=== PATIENT | male | born 1990 | race Caucasian/White ===

== ENCOUNTER 2017-05-18 12:50 | Inpatient (IN) | payer MEDICAID, OTHER ==
[~2017-05-18] VITALS: Ht 172.7 cm; Wt 83.6 kg
[2017-05-18] MEDS ORDERED: ARIP2 PO (12:57)
[2017-05-18] MEDS ORDERED: PALI39DI IM (12:57)
[2017-05-18] MEDS ORDERED: TRAZ-147 PO (12:57)
[2017-05-18] MEDS ORDERED: LORazepam 2 MG TABLET PO ONE (13:30)
[2017-05-18 13:36] LABS: BASOPHILS % (AUTO) 0.4 % (0.0-2.0); EOSINOPHILS % (AUTO) 1.9 % (1.0-6.0); HEMATOCRIT 42.8 % (41-53); HEMOGLOBIN 14.6 g/dL (13.5-17.5); LYMPHOCYTES # (AUTO) 1.4 K/uL (1.0-4.8); LYMPHOCYTES % (AUTO) 17.5 % (22.0-44.0); MEAN CORPUSCULAR HEMOGLOBIN 30.8 pg (26.0-34.0); MEAN CORPUSCULAR HGB CONC 34.2 G/dL (31.0-37.0); MEAN CORPUSCULAR VOLUME 90 fL (80-100); MONOCYTES # (AUTO) 0.7 K/uL (0.1-1.0); MONOCYTES % (AUTO) 8.9 % (2.0-9.0); NEUTROPHILS # (AUTO) 5.9 K/uL (1.8-7.7); NEUTROPHILS % (AUTO) 71.3 % (40.0-70.0); PLATELET COUNT (AUTO) 190 K/uL (150-450); RED BLOOD CELL COUNT(AUTO) 4.75 MIL/uL (4.50-5.90); RED CELL DISTRIBUTION WIDTH 13.7 % (11.5-14.5); WHITE BLOOD COUNT (AUTO) 8.3 K/uL (4.5-11.0)
[2017-05-18 14:04] LABS: ANION GAP 7 mmol/L (8-16); CARBON DIOXIDE 25 mmol/L (22-29); CHLORIDE 106 mmol/L (98-107); CREATININE 0.89 mg/dL (0.60-1.30); GLOMERULAR FILTR. RATE CALC > 60 mL/min (>60); POTASSIUM 4.4 mmol/L (3.5-5.1); SODIUM SERUM 138 mmol/L (136-145); UREA NITROGEN, BLOOD 13 mg/dL (7-18)
[2017-05-18 14:10] LABS: ALANINE AMINOTRANSFERASE 46 U/L (12-78); ALBUMIN 3.8 g/dL (3.4-5.0); ASPARTATE AMINOTRANSFERASE 59 U/L (15-37); BILIRUBIN,TOTAL 0.3 mg/dL (0.1-1.0); TOTAL PROTEIN, SERUM 6.9 g/dL (6.4-8.2)
[2017-05-18 14:49] VITALS: BP 116/66
[2017-05-18] MEDS: HALOPERIDOL 5 MG TABLET PO PRN (17:18)
[2017-05-18] MEDS: LORazepam 2 MG TABLET PO PRN (17:18)
[2017-05-18] MEDS ORDERED: INFLUENZA VIRUS VACCINE QVS 2017-18 (3YR+)/PF 60 MCG/0.5 ML SYRINGE IM ONE (20:15)
[2017-05-19 07:39] VITALS: BP 104/61
[2017-05-19] MEDS ORDERED: MAGNESIUM HYDROXIDE SUSPENSION 30 ML UDCUP PO PRN (10:00)
[2017-05-19] MEDS ORDERED: IBUPROFEN 600 MG TABLET PO PRN (10:00)
[2017-05-19] MEDS ORDERED: ALBUTEROL SULFATE HFA 90 MCG/PUFF 8 GM INHALER IH PRN (10:00)
[2017-05-19] MEDS ORDERED: ONDANSETRON HCL 4 MG TABLET PO PRN (10:00)
[2017-05-19] MEDS ORDERED: CloNIDine HCL 0.1 MG TABLET PO PRN (10:00)
[2017-05-19] MEDS ORDERED: LOPERAMIDE HCL 2 MG CAPSULE PO PRN (10:00)
[2017-05-19] MEDS ORDERED: MAG HYDROX/AL HYDROX/SIMETH ES 30 ML SUSPENSION UDCUP PO PRN (10:00)
[2017-05-19] MEDS ORDERED: ACETAMINOPHEN 325 MG TABLET PO PRN (10:00)
[2017-05-19] MEDS ORDERED: BACITRACIN 28.4 GM OINTMENT TP PRN (10:00)
[2017-05-19] MEDS ORDERED: PETROLATUM,WHITE 71 GM JELLY TP PRN (10:00)
[2017-05-19] MEDS ORDERED: BENZOCAINE/MENTHOL LOZENGE MM PRN (10:00)
[2017-05-19] MEDS: LORazepam 2 MG TABLET PO PRN ×2 (12:45→20:40)
[2017-05-19] MEDS: HALOPERIDOL 5 MG TABLET PO PRN (12:45)
[2017-05-19 16:00] VITALS: BP 112/70
[2017-05-19] MEDS: TraZODone HCL 100 MG TABLET PO SCH (20:40)
[2017-05-20 07:04] VITALS: BP 119/69
[2017-05-20 08:54] VITALS: BP 100/60
[2017-05-20] MEDS: ARIPiprazole 2 MG TABLET PO SCH (09:17)
[2017-05-20] MEDS: LORazepam 2 MG TABLET PO PRN ×3 (09:17→20:35)
[2017-05-20] MEDS: HALOPERIDOL 5 MG TABLET PO PRN (16:07)
[2017-05-20] MEDS: TraZODone HCL 100 MG TABLET PO SCH (20:35)
[2017-05-20] MEDS: ZOLPIDEM TARTRATE 10 MG TABLET PO PRN (20:35)
[2017-05-21 08:08] VITALS: BP 103/64
[2017-05-21] MEDS: ARIPiprazole 2 MG TABLET PO SCH (08:45)
[2017-05-21 16:16] VITALS: BP 109/72
[2017-05-21] MEDS: TraZODone HCL 100 MG TABLET PO SCH (20:25)
[2017-05-22 08:39] VITALS: BP 100/61
[2017-05-22 09:03] LABS: HEMOGLOBIN A1C 5.5 % (4.5-6.2)
[2017-05-22] MEDS: ARIPiprazole 2 MG TABLET PO SCH (09:10)
[2017-05-22 09:46] LABS: CHOL/HDL RATIO 4.4 (4.2-7.3); THYROID STIMULATING HORMONE 2.67 uIU/mL (0.36-3.74)
[2017-05-22 16:00] VITALS: BP 109/73
[2017-05-22] MEDS: HALOPERIDOL 5 MG TABLET PO PRN (16:37)
[2017-05-22] MEDS: LORazepam 2 MG TABLET PO PRN (16:37)
[2017-05-22] MEDS: TraZODone HCL 100 MG TABLET PO SCH (20:41)
[2017-05-23 08:36] VITALS: BP 108/65
[2017-05-23] MEDS: ARIPiprazole 2 MG TABLET PO SCH (09:23)
[2017-05-23 10:37] LABS: HEPATITIS Bs ANTIGEN SCREEN P Negative (Negative); HEPATITIS C AB SCREEN <0.1 s/co ratio (0.0-0.9)
[2017-05-23 16:00] VITALS: BP 114/66
[2017-05-23] MEDS: HALOPERIDOL 5 MG TABLET PO PRN (16:02)
[2017-05-23] MEDS: LORazepam 2 MG TABLET PO PRN (16:02)
[2017-05-23] MEDS: TraZODone HCL 100 MG TABLET PO SCH (20:33)
[2017-05-24 06:40] VITALS: BP 123/89
[2017-05-24 08:10] VITALS: BP 101/60
[2017-05-24] MEDS: ARIPiprazole 2 MG TABLET PO SCH (09:26)
[2017-05-24] MEDS: LORazepam 2 MG TABLET PO PRN ×3 (11:39→20:34)
[2017-05-24 16:00] VITALS: BP 116/66
[2017-05-24] MEDS: HALOPERIDOL 5 MG TABLET PO PRN (16:13)
[2017-05-24] MEDS: TraZODone HCL 100 MG TABLET PO SCH (20:34)
[2017-05-24] MEDS: ZOLPIDEM TARTRATE 10 MG TABLET PO PRN (20:34)
[2017-05-25 06:22] VITALS: BP 121/73
[2017-05-25 08:23] VITALS: BP 110/60
[2017-05-25] MEDS: ARIPiprazole 2 MG TABLET PO SCH (09:16)
[2017-05-25 16:00] VITALS: BP 118/70
[2017-05-25] MEDS: HALOPERIDOL 5 MG TABLET PO PRN (16:11)
[2017-05-25] MEDS: LORazepam 2 MG TABLET PO PRN ×2 (16:11→20:53)
[2017-05-25] MEDS: ZOLPIDEM TARTRATE 10 MG TABLET PO PRN (20:53)
[2017-05-25] MEDS: TraZODone HCL 100 MG TABLET PO SCH (20:53)
[2017-05-26 07:05] VITALS: BP 105/66
[2017-05-26 08:17] VITALS: BP 112/69
[2017-05-26] MEDS: ARIPiprazole 2 MG TABLET PO SCH (09:00)
== END 2017-05-26 15:35 | disposition home or self-care (01) | DRG 750 ==
LOC: EMS 12:50 → B3A 13:54
PROVIDERS: ADMIT Psychiatry & Neurology Psychiatry; ATTEND Psychiatry & Neurology Psychiatry
DX: F25.9 Schizoaffective disorder, unspecified (principal); F22 Delusional disorders; R45.851 Suicidal ideations; F31.9 Bipolar disorder, unspecified; F17.210 Nicotine dependence, cigarettes, uncomplicated; G40.909 Epilepsy, unspecified, not intractable, without status epilepticus; G47.00 Insomnia, unspecified; K59.00 Constipation, unspecified; Z71.6 Tobacco abuse counseling; Z72.89 Other problems related to lifestyle; Z71.41 Alcohol abuse counseling and surveillance of alcoholic; Z28.21 Immunization not carried out because of patient refusal; Z88.8 Allergy status to other drugs, medicaments and biological substances
CPT/HCPCS: 80074; 82306; 83036; 84443; 99285; G0480

== ENCOUNTER 2017-07-15 11:48 | Inpatient (IN) | payer MEDICAID, OTHER ==
[~2017-07-15] VITALS: Ht 177.8 cm; Wt 75.5 kg
[~2017-07-15 11:48] MED LIST: ARIP2 PO; TRAZ-147 PO
[2017-07-15] MEDS ORDERED: LITH300C3 PO (12:17)
[2017-07-15] MEDS ORDERED: PALI78DI IM (12:17)
[2017-07-15 12:53] LABS: BASOPHILS % (AUTO) 0.4 % (0.0-2.0); HEMATOCRIT 46.3 % (41-53); HEMOGLOBIN 15.8 g/dL (13.5-17.5); LYMPHOCYTES % (AUTO) 28.3 % (22.0-44.0); MEAN CORPUSCULAR HEMOGLOBIN 30.5 pg (26.0-34.0); MEAN CORPUSCULAR HGB CONC 34.1 G/dL (31.0-37.0); MEAN CORPUSCULAR VOLUME 90 fL (80-100); MONOCYTES # (AUTO) 0.7 K/uL (0.1-1.0); MONOCYTES % (AUTO) 9.4 % (2.0-9.0); NEUTROPHILS # (AUTO) 4.3 K/uL (1.8-7.7); NEUTROPHILS % (AUTO) 60.9 % (40.0-70.0); PLATELET COUNT (AUTO) 219 K/uL (150-450); RED BLOOD CELL COUNT(AUTO) 5.17 MIL/uL (4.50-5.90); RED CELL DISTRIBUTION WIDTH 13.4 % (11.5-14.5)
[2017-07-15 13:00] LABS: ANION GAP 7 mmol/L (8-16); CALCIUM, TOTAL 9.3 mg/dL (8.8-10.5); CARBON DIOXIDE 30 mmol/L (22-29); CHLORIDE 103 mmol/L (98-107); CREATININE 1.15 mg/dL (0.60-1.30); GLOMERULAR FILTR. RATE CALC > 60 mL/min (>60); GLUCOSE,RANDOM 89 mg/dL (70-110); POTASSIUM 3.9 mmol/L (3.5-5.1); SODIUM SERUM 140 mmol/L (136-145); UREA NITROGEN, BLOOD 14 mg/dL (7-18)
[2017-07-15 13:08] LABS: ALANINE AMINOTRANSFERASE 22 U/L (12-78); ALBUMIN 4.3 g/dL (3.4-5.0); ALKALINE PHOSPHATASE 77 U/L (46-116); ASPARTATE AMINOTRANSFERASE 19 U/L (15-37); BILIRUBIN,TOTAL 0.5 mg/dL (0.1-1.0); TOTAL PROTEIN, SERUM 7.5 g/dL (6.4-8.2)
[2017-07-15] MEDS ORDERED: ZOLPIDEM TARTRATE 10 MG TABLET PO PRN (14:45)
[2017-07-15 16:54] LABS: CHOL/HDL RATIO 2.9 (4.2-7.3); CHOLESTEROL 136 mg/dL (131-200); FREE T4 (FREE THYROXINE) 1.04 ng/dL (0.76-1.46); HDL CHOLESTEROL 47 mg/dL (40-60); LDL CHOL (CALC.) 79 mg/dL (0-130); THYROID STIMULATING HORMONE 1.21 uIU/mL (0.36-3.74); TRIGLYCERIDES 49 mg/dL (15-150)
[2017-07-15] MEDS: HALOPERIDOL 5 MG TABLET PO PRN (18:17)
[2017-07-15] MEDS: LORazepam 2 MG TABLET PO PRN (18:17)
[2017-07-15] MEDS ORDERED: INFLUENZA VIRUS VACCINE QVS 2017-18 (3YR+)/PF 60 MCG/0.5 ML SYRINGE IM ONE (18:45)
[2017-07-15 20:13] VITALS: BP 118/72
[2017-07-16 06:24] VITALS: BP 94/55
[2017-07-16 08:37] VITALS: BP 97/74
[2017-07-16] MEDS: HALOPERIDOL 5 MG TABLET PO PRN ×2 (08:39→16:13)
[2017-07-16] MEDS: NICOTINE 21 MG/24 HOUR PATCH TD SCH ×2 (08:40→09:05)
[2017-07-16] MEDS: LORazepam 2 MG TABLET PO PRN ×2 (08:40→16:13)
[2017-07-16] MEDS ORDERED: ARIPiprazole 10 MG TABLET PO SCH (09:00)
[2017-07-16] MEDS: LITHIUM CARBONATE 300 MG CAPSULE PO SCH ×2 (09:05→16:13)
[2017-07-16 16:08] VITALS: BP 116/70
[2017-07-16] MEDS ORDERED: TraZODone HCL 50 MG TABLET PO SCH (21:00)
[2017-07-17 08:00] VITALS: BP 110/65
[2017-07-17] MEDS: HALOPERIDOL 5 MG TABLET PO PRN ×2 (09:16→16:36)
[2017-07-17] MEDS: LITHIUM CARBONATE 300 MG CAPSULE PO SCH ×2 (09:16→16:36)
[2017-07-17] MEDS: LORazepam 2 MG TABLET PO PRN ×2 (09:16→16:36)
[2017-07-17 16:05] VITALS: BP 120/64
[2017-07-17] MEDS: RisperiDONE 1 MG TABLET PO SCH (20:15)
[2017-07-18 06:23] VITALS: BP 122/78
[2017-07-18 08:04] VITALS: BP 110/68
[2017-07-18] MEDS: NICOTINE 21 MG/24 HOUR PATCH TD SCH (09:01)
[2017-07-18] MEDS: LITHIUM CARBONATE 300 MG CAPSULE PO SCH (09:01)
[2017-07-18] MEDS: RisperiDONE 1 MG TABLET PO SCH (09:01)
[2017-07-18] MEDS ORDERED: RISP1 PO (10:27)
== END 2017-07-18 13:15 | disposition home or self-care (01) | DRG 750 ==
LOC: EMS 11:49 → B2S 16:20 → B3A 18:13
DX: F25.1 Schizoaffective disorder, depressive type (principal); R56.9 Unspecified convulsions; F31.9 Bipolar disorder, unspecified; F17.210 Nicotine dependence, cigarettes, uncomplicated; K59.00 Constipation, unspecified; G47.00 Insomnia, unspecified; S80.812A Abrasion, left lower leg, initial encounter; S80.811A Abrasion, right lower leg, initial encounter; X58.XXXA Exposure to other specified factors, initial encounter; Y93.89 Activity, other specified; Y92.89 Other specified places as the place of occurrence of the external cause; Z88.8 Allergy status to other drugs, medicaments and biological substances; Z71.6 Tobacco abuse counseling; Z72.89 Other problems related to lifestyle; Z71.41 Alcohol abuse counseling and surveillance of alcoholic; Z91.5 Personal history of self-harm; Y99.8 Other external cause status; Z59.0 Homelessness; Z79.899 Other long term (current) drug therapy
CPT/HCPCS: 84439; 84443; 99285; 99406; G0480

== ENCOUNTER 2019-02-24 04:57 | Emergency (ER) | payer MEDICAID, OTHER ==
[~2019-02-24] VITALS: Ht 172.7 cm; Wt 94.5 kg
[~2019-02-24 04:57] MED LIST changes: -ARIP2 PO; +LITH300C3 PO; +RISP1 PO; -TRAZ-147 PO
[2019-02-24 07:04] LABS: BASOPHILS % (AUTO) 0.5 % (0.0-2.0); EOSINOPHILS % (AUTO) 0.5 % (1.0-6.0); HEMATOCRIT 40.1 % (41-53); HEMOGLOBIN 13.6 g/dL (13.5-17.5); LYMPHOCYTES # (AUTO) 1.8 K/uL (1.0-4.8); LYMPHOCYTES % (AUTO) 22.8 % (22.0-44.0); MEAN CORPUSCULAR HEMOGLOBIN 31.4 pg (26.0-34.0); MEAN CORPUSCULAR HGB CONC 33.8 G/dL (31.0-37.0); MEAN CORPUSCULAR VOLUME 93 fL (80-100); MONOCYTES # (AUTO) 0.7 K/uL (0.1-1.0); MONOCYTES % (AUTO) 9.1 % (2.0-9.0); NEUTROPHILS # (AUTO) 5.3 K/uL (1.8-7.7); NEUTROPHILS % (AUTO) 67.1 % (40.0-70.0); PLATELET COUNT (AUTO) 165 K/uL (150-450); RED BLOOD CELL COUNT(AUTO) 4.33 MIL/uL (4.50-5.90); RED CELL DISTRIBUTION WIDTH 14.5 % (11.5-14.5)
[2019-02-24 07:11] LABS: ANION GAP 6 mmol/L (8-16); CARBON DIOXIDE 29 mmol/L (22-29); CHLORIDE 107 mmol/L (98-107); CREATININE 1.09 mg/dL (0.60-1.30); GLOMERULAR FILTR. RATE CALC > 60 mL/min (>60); GLUCOSE,RANDOM 109 mg/dL (70-110); POTASSIUM 4.3 mmol/L (3.5-5.1); SODIUM SERUM 142 mmol/L (136-145); UREA NITROGEN, BLOOD 16 mg/dL (7-18)
[2019-02-24 07:16] LABS: ALANINE AMINOTRANSFERASE 17 U/L (12-78); ALBUMIN 3.9 g/dL (3.4-5.0); ALKALINE PHOSPHATASE 62 U/L (46-116); ASPARTATE AMINOTRANSFERASE 30 U/L (15-37); BILIRUBIN,TOTAL 0.3 mg/dL (0.1-1.0); TOTAL PROTEIN, SERUM 6.1 g/dL (6.4-8.2)
[2019-02-24 07:19] LABS: LITHIUM < 0.20 mmol/L (0.60-1.20)
[2019-02-24] MEDS ORDERED: HALOPERIDOL 5 MG TABLET PO ONE (09:15)
[2019-02-24] MEDS ORDERED: LORazepam 1 MG TABLET PO ONE (09:15)
[2019-02-24 09:34] VITALS: BP 119/72
== END 2019-02-24 09:42 | disposition home or self-care (01) ==
LOC: EMS 04:59
DX: F20.9 Schizophrenia, unspecified (principal); F19.10 Other psychoactive substance abuse, uncomplicated; F22 Delusional disorders; F31.9 Bipolar disorder, unspecified; F17.210 Nicotine dependence, cigarettes, uncomplicated; F12.90 Cannabis use, unspecified, uncomplicated; Z88.8 Allergy status to other drugs, medicaments and biological substances
CPT/HCPCS: 36415; 80053; 80178; 85025; 99285; G0480

== ENCOUNTER 2019-05-16 00:35 | Inpatient (IN) | payer MEDICAID, OTHER ==
[~2019-05-16] VITALS: Ht 172.7 cm; Wt 66.5 kg
[2019-05-16 01:39] LABS: BASOPHILS % (AUTO) 0.3 % (0.0-2.0); HEMATOCRIT 42.9 % (41-53); HEMOGLOBIN 14.5 g/dL (13.5-17.5); LYMPHOCYTES # (AUTO) 1.6 K/uL (1.0-4.8); MEAN CORPUSCULAR HEMOGLOBIN 30.5 pg (26.0-34.0); MEAN CORPUSCULAR HGB CONC 33.8 G/dL (31.0-37.0); MEAN CORPUSCULAR VOLUME 90 fL (80-100); MONOCYTES # (AUTO) 0.7 K/uL (0.1-1.0); MONOCYTES % (AUTO) 9.9 % (2.0-9.0); NEUTROPHILS # (AUTO) 4.9 K/uL (1.8-7.7); NEUTROPHILS % (AUTO) 66.8 % (40.0-70.0); PLATELET COUNT (AUTO) 274 K/uL (150-450); RED BLOOD CELL COUNT(AUTO) 4.75 MIL/uL (4.50-5.90); RED CELL DISTRIBUTION WIDTH 13.5 % (11.5-14.5)
[2019-05-16 01:46] LABS: ANION GAP 10 mmol/L (8-16); CALCIUM, TOTAL 9.4 mg/dL (8.8-10.5); CARBON DIOXIDE 28 mmol/L (22-29); CHLORIDE 103 mmol/L (98-107); CREATININE 1.15 mg/dL (0.60-1.30); GLOMERULAR FILTR. RATE CALC > 60 mL/min (>60); GLUCOSE,RANDOM 85 mg/dL (70-110); POTASSIUM 4.2 mmol/L (3.5-5.1); SODIUM SERUM 141 mmol/L (136-145); UREA NITROGEN, BLOOD 17 mg/dL (7-18)
[2019-05-16 01:52] LABS: ALANINE AMINOTRANSFERASE 22 U/L (12-78); ALBUMIN 3.9 g/dL (3.4-5.0); ALKALINE PHOSPHATASE 75 U/L (46-116); ASPARTATE AMINOTRANSFERASE 23 U/L (15-37); BILIRUBIN,TOTAL 0.4 mg/dL (0.1-1.0); TOTAL PROTEIN, SERUM 7.2 g/dL (6.4-8.2)
[2019-05-16] MEDS ORDERED: OLANZapine 5 MG RAPDIS TABLET PO PRN (03:45)
[2019-05-16 10:05] VITALS: BP 117/68
[2019-05-16] MEDS ORDERED: INFLUENZA VIRUS VACCINE QVS 2019-20 (3YR+)/PF 60 MCG/0.5 ML SYRINGE IM ONE (15:00)
[2019-05-16] MEDS ORDERED: LORazepam 2 MG/ML VIAL IM ONE (16:00)
[2019-05-16] MEDS ORDERED: HALOPERIDOL LACTATE 5 MG/ML VIAL IM ONE (16:00)
[2019-05-16] MEDS ORDERED: DiphenhydrAMINE HCL 50 MG/ML VIAL IM ONE (16:00)
[2019-05-16] MEDS: LORazepam 2 MG TABLET PO PRN (16:05)
[2019-05-16] MEDS: LITHIUM CARBONATE 300 MG CAPSULE PO SCH (16:08)
[2019-05-16] MEDS: RisperiDONE 1 MG TABLET PO SCH (16:08)
[2019-05-16] MEDS: PRAZOSIN HCL 1 MG CAPSULE PO SCH (20:55)
[2019-05-17] MEDS: RisperiDONE 1 MG TABLET PO SCH ×3 (08:59→16:40)
[2019-05-17] MEDS: LITHIUM CARBONATE 300 MG CAPSULE PO SCH ×2 (09:00→16:40)
[2019-05-17] MEDS: LORazepam 2 MG TABLET PO PRN (14:58)
[2019-05-17] MEDS: PRAZOSIN HCL 1 MG CAPSULE PO SCH (20:57)
[2019-05-18] MEDS: LITHIUM CARBONATE 300 MG CAPSULE PO SCH ×2 (08:56→17:00)
[2019-05-18] MEDS: RisperiDONE 1 MG TABLET PO SCH ×2 (08:57→17:00)
[2019-05-18] MEDS ORDERED: DiphenhydrAMINE HCL 50 MG/ML VIAL ONE (13:13)
[2019-05-18] MEDS ORDERED: LORazepam 2 MG/ML VIAL ONE (13:13)
[2019-05-18] MEDS ORDERED: HALOPERIDOL LACTATE 5 MG/ML VIAL ONE (13:13)
[2019-05-18] MEDS ORDERED: LORazepam 2 MG/ML VIAL IM ONE (13:45)
[2019-05-18] MEDS ORDERED: DiphenhydrAMINE HCL 50 MG/ML VIAL IM ONE (13:45)
[2019-05-18] MEDS ORDERED: HALOPERIDOL LACTATE 5 MG/ML VIAL IM ONE (13:45)
[2019-05-18] MEDS: PRAZOSIN HCL 1 MG CAPSULE PO SCH (20:57)
[2019-05-19] MEDS: LITHIUM CARBONATE 300 MG CAPSULE PO SCH ×2 (08:46→16:41)
[2019-05-19] MEDS: RisperiDONE 1 MG TABLET PO SCH ×2 (08:46→16:41)
[2019-05-19 16:09] VITALS: BP 127/65
[2019-05-19] MEDS: PRAZOSIN HCL 1 MG CAPSULE PO SCH (20:14)
[2019-05-20 08:14] VITALS: BP 128/73
[2019-05-20] MEDS ORDERED: ARIPiprazole 10 MG TABLET PO SCH (09:00)
[2019-05-20] MEDS: NICOTINE 14 MG/24 HOUR PATCH TD SCH (13:44)
[2019-05-20 16:29] VITALS: BP 103/72
[2019-05-20] MEDS: LORazepam 2 MG TABLET PO PRN (17:31)
[2019-05-20] MEDS: ARIPiprazole 10 MG TABLET PO SCH (20:11)
[2019-05-20] MEDS: PRAZOSIN HCL 1 MG CAPSULE PO SCH (20:12)
[2019-05-20] MEDS: ZOLPIDEM TARTRATE 10 MG TABLET PO PRN (20:12)
[2019-05-21 06:53] VITALS: BP 109/67
[2019-05-21 08:12] VITALS: BP 127/63
[2019-05-21] MEDS: NICOTINE 14 MG/24 HOUR PATCH TD SCH (09:54)
[2019-05-21 16:09] VITALS: BP 136/80
[2019-05-21 16:10] VITALS: BP 121/73
[2019-05-21] MEDS: LORazepam 2 MG TABLET PO PRN (20:46)
[2019-05-21] MEDS: ZOLPIDEM TARTRATE 10 MG TABLET PO PRN (20:46)
[2019-05-21] MEDS: ARIPiprazole 10 MG TABLET PO SCH ×2 (20:47→21:45)
[2019-05-21] MEDS: PRAZOSIN HCL 1 MG CAPSULE PO SCH ×2 (20:47→21:46)
[2019-05-21] MEDS: MIRTAZAPINE 15 MG TABLET PO SCH ×2 (20:47→21:45)
[2019-05-22 06:13] VITALS: BP 125/82
[2019-05-22] MEDS: NICOTINE 14 MG/24 HOUR PATCH TD SCH ×2 (09:00→09:53)
[2019-05-22 16:00] VITALS: BP 122/68
[2019-05-22] MEDS: MIRTAZAPINE 15 MG TABLET PO SCH (20:32)
[2019-05-22] MEDS: LORazepam 2 MG TABLET PO PRN (20:32)
[2019-05-22] MEDS: ARIPiprazole 10 MG TABLET PO SCH (20:32)
[2019-05-22] MEDS: PRAZOSIN HCL 1 MG CAPSULE PO SCH (20:32)
[2019-05-23 05:09] VITALS: BP 136/72
[2019-05-23] MEDS: NICOTINE 14 MG/24 HOUR PATCH TD SCH (09:08)
[2019-05-23 16:00] VITALS: BP 108/75
[2019-05-23] MEDS: LORazepam 2 MG TABLET PO PRN (16:05)
[2019-05-23] MEDS: ARIPiprazole 10 MG TABLET PO SCH (20:40)
[2019-05-23] MEDS: PRAZOSIN HCL 1 MG CAPSULE PO SCH (20:40)
[2019-05-23] MEDS: MIRTAZAPINE 15 MG TABLET PO SCH (20:40)
[2019-05-23] MEDS: ZOLPIDEM TARTRATE 10 MG TABLET PO PRN (20:40)
[2019-05-24] MEDS ORDERED: PRAZ1 PO (09:46)
[2019-05-24] MEDS ORDERED: ARIP10TA8 PO (09:46)
[2019-05-24] MEDS ORDERED: MIRT15 PO (09:46)
[2019-05-24] MEDS: NICOTINE 14 MG/24 HOUR PATCH TD SCH (10:06)
== END 2019-05-24 13:20 | disposition home or self-care (01) | DRG 750 ==
LOC: EMS 00:36 → B2S 08:00 → B3A 10:02
DX: F25.0 Schizoaffective disorder, bipolar type (principal); G40.909 Epilepsy, unspecified, not intractable, without status epilepticus; F10.10 Alcohol abuse, uncomplicated; F43.12 Post-traumatic stress disorder, chronic; F12.90 Cannabis use, unspecified, uncomplicated; F17.210 Nicotine dependence, cigarettes, uncomplicated; Z59.0 Homelessness; Z79.899 Other long term (current) drug therapy; Z88.8 Allergy status to other drugs, medicaments and biological substances; Z91.5 Personal history of self-harm
CPT/HCPCS: 96372; G0480; J1200; J1630; J2060

== ENCOUNTER 2019-05-19 21:11 | Emergency (ER) | payer MEDICAID, OTHER ==
[~2019-05-19] VITALS: Ht 167.6 cm; Wt 78.0 kg
[2019-05-19] MEDS ORDERED: BENZTROPINE MESYLATE 1 MG/ML 2 ML VIAL IM ONE (21:30)
[2019-05-19] MEDS ORDERED: DiphenhydrAMINE HCL 25 MG CAPSULE PO ONE (21:30)
[2019-05-19 21:53] LABS: ANION GAP 7 mmol/L (8-16); BASOPHILS % (AUTO) 0.5 % (0.0-2.0); CALCIUM, TOTAL 8.9 mg/dL (8.8-10.5); CARBON DIOXIDE 29 mmol/L (22-29); CHLORIDE 104 mmol/L (98-107); EOSINOPHILS % (AUTO) 1.2 % (1.0-6.0); GLOMERULAR FILTR. RATE CALC > 60 mL/min (>60); GLUCOSE,RANDOM 97 mg/dL (70-110); HEMOGLOBIN 14.9 g/dL (13.5-17.5); LYMPHOCYTES # (AUTO) 2.4 K/uL (1.0-4.8); LYMPHOCYTES % (AUTO) 29.6 % (22.0-44.0); MEAN CORPUSCULAR HEMOGLOBIN 30.8 pg (26.0-34.0); MEAN CORPUSCULAR HGB CONC 33.8 G/dL (31.0-37.0); MEAN CORPUSCULAR VOLUME 91 fL (80-100); MONOCYTES # (AUTO) 0.6 K/uL (0.1-1.0); MONOCYTES % (AUTO) 7.4 % (2.0-9.0); NEUTROPHILS # (AUTO) 5.1 K/uL (1.8-7.7); NEUTROPHILS % (AUTO) 61.3 % (40.0-70.0); PLATELET COUNT (AUTO) 238 K/uL (150-450); POTASSIUM 4.2 mmol/L (3.5-5.1); RED BLOOD CELL COUNT(AUTO) 4.82 MIL/uL (4.50-5.90); RED CELL DISTRIBUTION WIDTH 13.2 % (11.5-14.5); SODIUM SERUM 140 mmol/L (136-145); UREA NITROGEN, BLOOD 19 mg/dL (7-18)
[2019-05-19 21:59] LABS: ALANINE AMINOTRANSFERASE 35 U/L (12-78); ALBUMIN 3.4 g/dL (3.4-5.0); ALKALINE PHOSPHATASE 69 U/L (46-116); ASPARTATE AMINOTRANSFERASE 58 U/L (15-37); BILIRUBIN,TOTAL 0.2 mg/dL (0.1-1.0); TOTAL PROTEIN, SERUM 6.5 g/dL (6.4-8.2)
[2019-05-19 23:25] VITALS: BP 104/65
== END 2019-05-19 23:36 | disposition home or self-care (01) ==
LOC: EMS 21:12
DX: M54.2 Cervicalgia (principal); T43.4X5A Adverse effect of butyrophenone and thiothixene neuroleptics, initial encounter; F31.9 Bipolar disorder, unspecified; F20.9 Schizophrenia, unspecified; F17.210 Nicotine dependence, cigarettes, uncomplicated; F12.90 Cannabis use, unspecified, uncomplicated; Z59.0 Homelessness; Z88.8 Allergy status to other drugs, medicaments and biological substances; Y92.89 Other specified places as the place of occurrence of the external cause
CPT/HCPCS: 36415; 80053; 85025; 96372; 99283; J0515

== ENCOUNTER 2019-06-29 20:25 | Emergency (ER) | payer OTHER ==
[~2019-06-29] VITALS: Ht 167.6 cm; Wt 78.0 kg
[~2019-06-29 20:25] MED LIST changes: +ARIP10TA8 PO; -LITH300C3 PO; +MIRT15 PO; +PRAZ1 PO; -RISP1 PO
[2019-06-29 20:40] VITALS: BP 115/75
== END 2019-06-29 21:45 | disposition left against medical advice (07) ==
LOC: EMS 20:26
DX: R46.89 Other symptoms and signs involving appearance and behavior (principal); Z53.21 Procedure and treatment not carried out due to patient leaving prior to being seen by health care provider

== ENCOUNTER 2019-07-26 16:50 | Inpatient (IN) | payer MEDICAID, OTHER ==
[~2019-07-26] VITALS: Ht 167.6 cm; Wt 71.3 kg
[~2019-07-26 16:50] MED LIST changes: +MIRT-92 PO; -MIRT15 PO
[2019-07-26 20:12] LABS: BASOPHILS % (AUTO) 0.5 % (0.0-2.0); EOSINOPHILS % (AUTO) 2.1 % (1.0-6.0); HEMOGLOBIN 15.2 g/dL (13.5-17.5); LYMPHOCYTES # (AUTO) 2.8 K/uL (1.0-4.8); LYMPHOCYTES % (AUTO) 35.8 % (22.0-44.0); MEAN CORPUSCULAR HEMOGLOBIN 30.6 pg (26.0-34.0); MEAN CORPUSCULAR HGB CONC 33.7 G/dL (31.0-37.0); MEAN CORPUSCULAR VOLUME 91 fL (80-100); MONOCYTES # (AUTO) 0.6 K/uL (0.1-1.0); MONOCYTES % (AUTO) 7.7 % (2.0-9.0); NEUTROPHILS # (AUTO) 4.2 K/uL (1.8-7.7); NEUTROPHILS % (AUTO) 53.9 % (40.0-70.0); PLATELET COUNT (AUTO) 212 K/uL (150-450); RED BLOOD CELL COUNT(AUTO) 4.95 MIL/uL (4.50-5.90)
[2019-07-26 20:21] LABS: AMPHET/METH SCREEN,URINE POSITIVE (NEGATIVE); BARBITURATE SCREEN, URINE NEGATIVE (NEGATIVE); BENZODIAZEPINES SCREEN,URINE NEGATIVE (NEGATIVE); CANNABINOID SCREEN,URINE NEGATIVE (NEGATIVE); COCAINE SCREEN,URINE NEGATIVE (NEGATIVE); METHADONE SCREEN, URINE NEGATIVE (NEGATIVE); OPIATE SCREEN,URINE NEGATIVE (NEGATIVE)
[2019-07-26 20:26] LABS: PHENCYCLIDINE SCREEN,URINE NEGATIVE (NEGATIVE)
[2019-07-26 20:31] LABS: ANION GAP 5 mmol/L (8-16); CALCIUM, TOTAL 9.4 mg/dL (8.8-10.5); CARBON DIOXIDE 30 mmol/L (22-29); CHLORIDE 106 mmol/L (98-107); CREATININE 0.99 mg/dL (0.60-1.30); GLOMERULAR FILTR. RATE CALC > 60 mL/min (>60); GLUCOSE,RANDOM 83 mg/dL (70-110); POTASSIUM 4.4 mmol/L (3.5-5.1); SODIUM SERUM 141 mmol/L (136-145); UREA NITROGEN, BLOOD 15 mg/dL (7-18)
[2019-07-26 20:36] LABS: ALANINE AMINOTRANSFERASE 28 U/L (12-78); ALBUMIN 3.8 g/dL (3.4-5.0); ALKALINE PHOSPHATASE 74 U/L (46-116); ASPARTATE AMINOTRANSFERASE 21 U/L (15-37); BILIRUBIN,TOTAL 0.2 mg/dL (0.1-1.0); TOTAL PROTEIN, SERUM 6.6 g/dL (6.4-8.2)
[2019-07-27] MEDS ORDERED: INFLUENZA VIRUS VACCINE QVS 2019-20 (3YR+)/PF 60 MCG/0.5 ML SYRINGE IM ONE (03:00)
[2019-07-27] MEDS ORDERED: MAG HYDROX/AL HYDROX/SIMETH ES 30 ML SUSPENSION UDCUP PO PRN (12:00)
[2019-07-27] MEDS ORDERED: LOPERAMIDE HCL 2 MG CAPSULE PO PRN (12:00)
[2019-07-27] MEDS ORDERED: PETROLATUM,WHITE 28 GM JELLY TP PRN (12:00)
[2019-07-27] MEDS ORDERED: GuaiFENesin/D-METHORPHAN [SUGAR-FREE] 200-20MG/10 ML SYRUP UDCUP PO PRN (12:00)
[2019-07-27] MEDS ORDERED: IBUPROFEN 400 MG TABLET PO PRN (12:00)
[2019-07-27] MEDS ORDERED: ALBUTEROL SULFATE HFA 90 MCG/PUFF 8 GM INHALER IH PRN (12:00)
[2019-07-27] MEDS ORDERED: MAGNESIUM HYDROXIDE SUSPENSION 30 ML UDCUP PO PRN (12:00)
[2019-07-27] MEDS ORDERED: DOCUSATE SODIUM 100 MG CAPSULE PO PRN (12:00)
[2019-07-27] MEDS ORDERED: CloNIDine HCL 0.1 MG TABLET PO PRN (12:00)
[2019-07-27] MEDS ORDERED: ACETAMINOPHEN 325 MG TABLET PO PRN (12:00)
[2019-07-27] MEDS ORDERED: ONDANSETRON HCL 4 MG TABLET PO PRN (12:00)
[2019-07-27] MEDS: HALOPERIDOL 5 MG TABLET PO PRN (16:11)
[2019-07-27] MEDS: LORazepam 2 MG TABLET PO PRN (16:11)
[2019-07-27] MEDS: NICOTINE 14 MG/24 HOUR PATCH TD PRN (16:20)
[2019-07-27 17:26] VITALS: BP 105/63
[2019-07-27 20:20] VITALS: BP 119/64
[2019-07-27] MEDS: ARIPiprazole 10 MG TABLET PO SCH (20:33)
[2019-07-27] MEDS: PRAZOSIN HCL 1 MG CAPSULE PO SCH (20:33)
[2019-07-27] MEDS: MIRTAZAPINE 15 MG TABLET PO SCH (20:33)
[2019-07-28 09:00] VITALS: BP 112/80
[2019-07-28 17:58] VITALS: BP 117/75
[2019-07-28] MEDS: ARIPiprazole 10 MG TABLET PO SCH (20:35)
[2019-07-28] MEDS: MIRTAZAPINE 15 MG TABLET PO SCH (20:36)
[2019-07-28] MEDS: PRAZOSIN HCL 1 MG CAPSULE PO SCH (20:36)
[2019-07-29] MEDS: NICOTINE 14 MG/24 HOUR PATCH TD PRN (12:42)
[2019-07-29] MEDS: LORazepam 2 MG TABLET PO PRN (15:59)
[2019-07-29 16:43] VITALS: BP 131/84
[2019-07-29] MEDS: PRAZOSIN HCL 1 MG CAPSULE PO SCH (20:34)
[2019-07-29] MEDS: MIRTAZAPINE 15 MG TABLET PO SCH (20:34)
[2019-07-29] MEDS: ARIPiprazole 10 MG TABLET PO SCH (20:34)
[2019-07-29] MEDS: ZOLPIDEM TARTRATE 10 MG TABLET PO PRN (20:37)
[2019-07-30 08:04] VITALS: BP 101/75
[2019-07-30] MEDS: LORazepam 2 MG TABLET PO PRN (12:57)
[2019-07-30] MEDS: HALOPERIDOL 5 MG TABLET PO PRN (13:22)
[2019-07-30 16:34] VITALS: BP 105/61
[2019-07-30] MEDS: PRAZOSIN HCL 1 MG CAPSULE PO SCH (20:40)
[2019-07-30] MEDS: ARIPiprazole 10 MG TABLET PO SCH (20:40)
[2019-07-30] MEDS: MIRTAZAPINE 15 MG TABLET PO SCH (20:40)
[2019-07-31 10:00] VITALS: BP 132/87
[2019-07-31] MEDS: LORazepam 2 MG TABLET PO PRN (12:58)
[2019-07-31] MEDS: HALOPERIDOL 5 MG TABLET PO PRN (12:58)
[2019-07-31 16:57] VITALS: BP 106/61
[2019-07-31] MEDS: MIRTAZAPINE 15 MG TABLET PO SCH (20:15)
[2019-07-31] MEDS: ARIPiprazole 10 MG TABLET PO SCH (20:15)
[2019-07-31 20:16] VITALS: BP 98/56
[2019-07-31] MEDS: PRAZOSIN HCL 1 MG CAPSULE PO SCH (20:16)
[2019-08-01 08:59] VITALS: BP 100/61
[2019-08-01] MEDS: LORazepam 2 MG TABLET PO PRN (17:16)
[2019-08-01] MEDS: HALOPERIDOL 5 MG TABLET PO PRN (17:16)
[2019-08-01 17:57] VITALS: BP 115/75
[2019-08-01] MEDS: ARIPiprazole 10 MG TABLET PO SCH (20:03)
[2019-08-01] MEDS: PRAZOSIN HCL 1 MG CAPSULE PO SCH (20:04)
[2019-08-01] MEDS: MIRTAZAPINE 15 MG TABLET PO SCH (20:04)
[2019-08-02] MEDS: NICOTINE 14 MG/24 HOUR PATCH TD PRN (16:33)
[2019-08-02] MEDS: MIRTAZAPINE 15 MG TABLET PO SCH (20:09)
[2019-08-02] MEDS: PRAZOSIN HCL 1 MG CAPSULE PO SCH (20:09)
[2019-08-02] MEDS: ARIPiprazole 10 MG TABLET PO SCH (20:09)
[2019-08-02 21:10] VITALS: BP 126/79
[2019-08-03 17:27] VITALS: BP 119/75
[2019-08-03] MEDS: MIRTAZAPINE 15 MG TABLET PO SCH (20:01)
[2019-08-03] MEDS: ARIPiprazole 10 MG TABLET PO SCH (20:01)
[2019-08-03] MEDS: PRAZOSIN HCL 1 MG CAPSULE PO SCH (20:01)
[2019-08-03] MEDS: ZOLPIDEM TARTRATE 10 MG TABLET PO PRN (20:21)
[2019-08-04 12:00] VITALS: BP 132/75
[2019-08-04] MEDS: MIRTAZAPINE 15 MG TABLET PO SCH (20:01)
[2019-08-04] MEDS: PRAZOSIN HCL 1 MG CAPSULE PO SCH (20:01)
[2019-08-04] MEDS: ARIPiprazole 10 MG TABLET PO SCH (20:01)
[2019-08-04] MEDS: HALOPERIDOL 5 MG TABLET PO PRN (20:26)
[2019-08-04] MEDS: LORazepam 2 MG TABLET PO PRN (20:26)
[2019-08-05 08:40] VITALS: BP 126/77
[2019-08-05 16:00] VITALS: BP 104/62
[2019-08-05] MEDS: ARIPiprazole 10 MG TABLET PO SCH (20:07)
[2019-08-05] MEDS: PRAZOSIN HCL 1 MG CAPSULE PO SCH (20:07)
[2019-08-05] MEDS: MIRTAZAPINE 15 MG TABLET PO SCH (20:07)
[2019-08-05] MEDS: HALOPERIDOL 5 MG TABLET PO PRN (20:11)
[2019-08-05] MEDS: LORazepam 2 MG TABLET PO PRN (20:11)
[2019-08-05] MEDS: ZOLPIDEM TARTRATE 10 MG TABLET PO PRN (20:11)
[2019-08-06 09:25] VITALS: BP 128/80
[2019-08-06] MEDS: NICOTINE 14 MG/24 HOUR PATCH TD PRN (16:08)
[2019-08-06 17:47] VITALS: BP 118/60
[2019-08-06] MEDS: PRAZOSIN HCL 1 MG CAPSULE PO SCH (20:17)
[2019-08-06] MEDS: MIRTAZAPINE 15 MG TABLET PO SCH (20:17)
[2019-08-06] MEDS: ARIPiprazole 10 MG TABLET PO SCH (20:17)
[2019-08-07 08:29] VITALS: BP 101/72
[2019-08-07] MEDS: LORazepam 2 MG TABLET PO PRN (13:21)
[2019-08-07] MEDS: HALOPERIDOL 5 MG TABLET PO PRN (13:21)
[2019-08-07 16:04] VITALS: BP 98/55
[2019-08-07] MEDS: PRAZOSIN HCL 1 MG CAPSULE PO SCH (20:19)
[2019-08-07] MEDS: ARIPiprazole 10 MG TABLET PO SCH (20:19)
[2019-08-07] MEDS: MIRTAZAPINE 15 MG TABLET PO SCH (20:19)
[2019-08-07 20:28] VITALS: BP 112/60
[2019-08-08] MEDS: LORazepam 2 MG TABLET PO PRN (14:33)
[2019-08-08] MEDS: HALOPERIDOL 5 MG TABLET PO PRN (14:33)
[2019-08-08] MEDS: ARIPiprazole 10 MG TABLET PO SCH (20:09)
[2019-08-08] MEDS: PRAZOSIN HCL 1 MG CAPSULE PO SCH (20:09)
[2019-08-08] MEDS: MIRTAZAPINE 15 MG TABLET PO SCH (20:09)
[2019-08-09 08:43] VITALS: BP 136/79
[2019-08-09] MEDS: NICOTINE 14 MG/24 HOUR PATCH TD PRN (15:05)
[2019-08-09 18:34] VITALS: BP 101/58
[2019-08-09 20:09] VITALS: BP 120/67
[2019-08-09] MEDS: ARIPiprazole 10 MG TABLET PO SCH (20:11)
[2019-08-09] MEDS: PRAZOSIN HCL 1 MG CAPSULE PO SCH (20:11)
[2019-08-09] MEDS: MIRTAZAPINE 15 MG TABLET PO SCH (20:11)
[2019-08-09] MEDS: ZOLPIDEM TARTRATE 10 MG TABLET PO PRN (22:43)
[2019-08-10 08:34] VITALS: BP 118/69
[2019-08-10] MEDS: LORazepam 2 MG TABLET PO PRN (12:22)
[2019-08-10] MEDS: HALOPERIDOL 5 MG TABLET PO PRN (12:22)
[2019-08-10 16:00] VITALS: BP 100/60
[2019-08-10] MEDS: PRAZOSIN HCL 1 MG CAPSULE PO SCH (20:41)
[2019-08-10] MEDS: ARIPiprazole 10 MG TABLET PO SCH (20:41)
[2019-08-10] MEDS: MIRTAZAPINE 15 MG TABLET PO SCH (20:41)
[2019-08-11 08:05] VITALS: BP 107/76
[2019-08-11] MEDS: HALOPERIDOL 5 MG TABLET PO PRN (13:25)
[2019-08-11] MEDS: LORazepam 2 MG TABLET PO PRN (13:26)
[2019-08-11] MEDS: NICOTINE 14 MG/24 HOUR PATCH TD PRN (14:01)
[2019-08-11] MEDS: MIRTAZAPINE 15 MG TABLET PO SCH (20:29)
[2019-08-11] MEDS: PRAZOSIN HCL 1 MG CAPSULE PO SCH (20:29)
[2019-08-11] MEDS: ARIPiprazole 10 MG TABLET PO SCH (20:29)
[2019-08-12 09:09] VITALS: BP 106/73
[2019-08-12 16:00] VITALS: BP 99/75
[2019-08-12] MEDS: LORazepam 2 MG TABLET PO PRN ×3 (17:11→20:04)
[2019-08-12 17:43] VITALS: BP 99/75
[2019-08-12] MEDS: MIRTAZAPINE 15 MG TABLET PO SCH (19:34)
[2019-08-12] MEDS: ARIPiprazole 10 MG TABLET PO SCH (19:34)
[2019-08-12] MEDS: PRAZOSIN HCL 1 MG CAPSULE PO SCH (21:01)
[2019-08-13 08:36] VITALS: BP 112/71
[2019-08-13] MEDS ORDERED: ARIP10TA8 PO (12:24)
== END 2019-08-13 13:45 | disposition home or self-care (01) | DRG 885 ==
LOC: EDUNIT# 16:50 → EMS 16:54 → 3EC 07-27 00:45
PROVIDERS: ADMIT Psychiatry & Neurology Child & Adolescent Psychiatry; ATTEND Psychiatry & Neurology Child & Adolescent Psychiatry
DX: F25.0 Schizoaffective disorder, bipolar type (principal); G40.909 Epilepsy, unspecified, not intractable, without status epilepticus; G44.209 Tension-type headache, unspecified, not intractable; R45.850 Homicidal ideations; F17.210 Nicotine dependence, cigarettes, uncomplicated; F15.10 Other stimulant abuse, uncomplicated; F12.10 Cannabis abuse, uncomplicated; Z59.0 Homelessness; Z91.14 Patient's other noncompliance with medication regimen; Z88.8 Allergy status to other drugs, medicaments and biological substances; Z79.899 Other long term (current) drug therapy; Z71.51 Drug abuse counseling and surveillance of drug abuser
CPT/HCPCS: G0480

== ENCOUNTER 2019-08-19 17:45 | Inpatient (IN) | payer MEDICAID ==
[~2019-08-19] VITALS: Ht 172.7 cm; Wt 75.7 kg
[2019-08-19] MEDS ORDERED: ZOLPIDEM TARTRATE 10 MG TABLET PO PRN (18:15)
[2019-08-19] MEDS ORDERED: HALOPERIDOL 5 MG TABLET PO PRN (18:15)
[2019-08-19 18:51] VITALS: BP 118/76
[2019-08-19 19:25] VITALS: BP 122/75
[2019-08-19] MEDS ORDERED: INFLUENZA VIRUS VACCINE QVS 2019-20 (3YR+)/PF 60 MCG/0.5 ML SYRINGE IM ONE (19:30)
[2019-08-19] MEDS ORDERED: PNEUMOCOCCAL VACCINE POLYVALENT 0.5 ML VIAL [PPSV23] IM ONE (19:30)
[2019-08-19] MEDS ORDERED: PRAZOSIN HCL 1 MG CAPSULE PO SCH (21:00)
[2019-08-20 05:08] VITALS: BP 114/68
[2019-08-20] MEDS ORDERED: MAG HYDROX/AL HYDROX/SIMETH ES 30 ML SUSPENSION UDCUP PO PRN (15:15)
[2019-08-20] MEDS ORDERED: ACETAMINOPHEN 325 MG TABLET PO PRN (15:15)
[2019-08-20] MEDS ORDERED: PETROLATUM,WHITE 28 GM JELLY TP PRN (15:15)
[2019-08-20] MEDS ORDERED: CloNIDine HCL 0.1 MG TABLET PO PRN (15:15)
[2019-08-20] MEDS ORDERED: ALBUTEROL SULFATE HFA 90 MCG/PUFF 8 GM INHALER IH PRN (15:15)
[2019-08-20] MEDS ORDERED: IBUPROFEN 400 MG TABLET PO PRN (15:15)
[2019-08-20] MEDS ORDERED: ONDANSETRON HCL 4 MG TABLET PO PRN (15:15)
[2019-08-20] MEDS ORDERED: DOCUSATE SODIUM 100 MG CAPSULE PO PRN (15:15)
[2019-08-20] MEDS ORDERED: NICOTINE 14 MG/24 HOUR PATCH TD PRN (15:15)
[2019-08-20] MEDS ORDERED: LOPERAMIDE HCL 2 MG CAPSULE PO PRN (15:15)
[2019-08-20] MEDS ORDERED: GuaiFENesin/D-METHORPHAN [SUGAR-FREE] 200-20MG/10 ML SYRUP UDCUP PO PRN (15:15)
[2019-08-20] MEDS ORDERED: MAGNESIUM HYDROXIDE SUSPENSION 30 ML UDCUP PO PRN (15:15)
[2019-08-20 17:24] VITALS: BP 122/73
[2019-08-20] MEDS: LORazepam 2 MG TABLET PO PRN (17:35)
[2019-08-20] MEDS: ARIPiprazole 10 MG TABLET PO SCH (20:37)
[2019-08-20] MEDS: MIRTAZAPINE 15 MG TABLET PO SCH (20:37)
[2019-08-20] MEDS: PRAZOSIN HCL 1 MG CAPSULE PO SCH (20:37)
[2019-08-21 00:23] VITALS: BP 118/73
[2019-08-21] MEDS: ARIPiprazole 10 MG TABLET PO SCH (20:33)
[2019-08-21] MEDS: PRAZOSIN HCL 1 MG CAPSULE PO SCH (20:34)
[2019-08-21] MEDS: LORazepam 2 MG TABLET PO PRN (20:34)
[2019-08-21] MEDS: MIRTAZAPINE 15 MG TABLET PO SCH (20:34)
[2019-08-22] MEDS: LORazepam 2 MG TABLET PO PRN ×2 (08:54→13:31)
[2019-08-22 16:14] VITALS: BP 102/62
== END 2019-08-22 21:10 | disposition home or self-care (01) | DRG 750 ==
LOC: B3A 18:48
PROVIDERS: ADMIT Psychiatry & Neurology Psychiatry; ATTEND Psychiatry & Neurology Child & Adolescent Psychiatry
DX: F25.9 Schizoaffective disorder, unspecified (principal); G40.909 Epilepsy, unspecified, not intractable, without status epilepticus; R45.851 Suicidal ideations; F10.10 Alcohol abuse, uncomplicated; R45.87 Impulsiveness; F15.10 Other stimulant abuse, uncomplicated; F12.10 Cannabis abuse, uncomplicated; F31.9 Bipolar disorder, unspecified; Z59.0 Homelessness; Z91.14 Patient's other noncompliance with medication regimen; Z88.8 Allergy status to other drugs, medicaments and biological substances; Z71.41 Alcohol abuse counseling and surveillance of alcoholic; Z71.51 Drug abuse counseling and surveillance of drug abuser
CPT/HCPCS: 87081

== ENCOUNTER 2019-10-10 11:47 | Emergency (ER) | payer MEDICAID, OTHER ==
[~2019-10-10] VITALS: Ht 172.7 cm; Wt 75.0 kg
[~2019-10-10 11:47] MED LIST changes: +MIRT-89 PO; -MIRT-92 PO
[2019-10-10 12:32] VITALS: BP 117/94
== END 2019-10-10 13:23 | disposition home or self-care (01) ==
LOC: EMS 11:51
DX: R45.851 Suicidal ideations (principal); F31.9 Bipolar disorder, unspecified; F20.9 Schizophrenia, unspecified; F12.90 Cannabis use, unspecified, uncomplicated; F17.210 Nicotine dependence, cigarettes, uncomplicated; Z88.8 Allergy status to other drugs, medicaments and biological substances; Z79.899 Other long term (current) drug therapy

== ENCOUNTER 2019-10-15 20:45 | Inpatient (IN) | payer MEDICAID, OTHER ==
[~2019-10-15] VITALS: Ht 172.7 cm; Wt 72.6 kg
[2019-10-15] MEDS ORDERED: MIRT-89 PO (20:58)
[2019-10-15] MEDS ORDERED: ARIP10TA8 PO (20:58)
[2019-10-15] MEDS ORDERED: PRAZ1 PO (20:58)
[2019-10-15] MEDS ORDERED: MAGNESIUM HYDROXIDE SUSPENSION 30 ML UDCUP PO PRN (21:15)
[2019-10-15] MEDS ORDERED: ACETAMINOPHEN 325 MG TABLET PO PRN (21:15)
[2019-10-15] MEDS ORDERED: MAG HYDROX/AL HYDROX/SIMETH ES 30 ML SUSPENSION UDCUP PO PRN (21:15)
[2019-10-15] MEDS ORDERED: ZOLPIDEM TARTRATE 10 MG TABLET PO PRN (21:15)
[2019-10-15] MEDS ORDERED: HydrOXYzine PAMOATE 50 MG CAPSULE PO PRN (21:15)
[2019-10-15] MEDS ORDERED: LOPERAMIDE HCL 2 MG CAPSULE PO PRN (21:15)
[2019-10-15] MEDS ORDERED: TUBERCULIN, PURIFIED PROTEIN DERIVATIVE 5 TU/0.1 ML SYRINGE ID ONE (21:15)
[2019-10-15] MEDS ORDERED: PROMETHAZINE HCL 25 MG TABLET PO PRN (21:15)
[2019-10-15] MEDS ORDERED: GuaiFENesin/D-METHORPHAN [SUGAR-FREE] 200-20MG/10 ML SYRUP UDCUP PO PRN (21:15)
[2019-10-15 21:32] VITALS: BP 117/71
[2019-10-15 21:50] VITALS: BP 125/79
[2019-10-15] MEDS ORDERED: INFLUENZA VIRUS VACCINE QVS 2019-20 (3YR+)/PF 60 MCG/0.5 ML SYRINGE IM ONE (22:15)
[2019-10-16 06:55] VITALS: BP 120/78
[2019-10-16] MEDS: THIAMINE HCL 100 MG TABLET PO SCH ×3 (08:31→15:38)
[2019-10-16] MEDS: NALTREXONE HCL 50 MG TABLET PO SCH ×2 (08:32→09:00)
[2019-10-16] MEDS: MULTIVITAMINS WITH MINERALS, THERAPEUTIC TABLET PO SCH ×2 (08:32→09:00)
[2019-10-16] MEDS: FLUoxetine HCL 20 MG CAPSULE PO SCH ×2 (08:32→09:00)
[2019-10-16] MEDS: FOLIC ACID 1 MG TABLET PO SCH ×2 (08:32→09:00)
[2019-10-16 13:15] VITALS: BP 111/45
[2019-10-16] MEDS ORDERED: LORazepam 2 MG/ML VIAL ONE (13:33)
[2019-10-16] MEDS ORDERED: HALOPERIDOL LACTATE 5 MG/ML VIAL ONE (13:33)
[2019-10-16] MEDS ORDERED: DiphenhydrAMINE HCL 50 MG/ML VIAL ONE (13:34)
[2019-10-16] MEDS ORDERED: HALOPERIDOL LACTATE 5 MG/ML VIAL IM ONE (15:30)
[2019-10-16] MEDS ORDERED: LORazepam 2 MG/ML VIAL IM ONE (15:30)
[2019-10-16] MEDS ORDERED: DiphenhydrAMINE HCL 50 MG/ML VIAL IM ONE (15:30)
[2019-10-16 16:11] VITALS: BP 101/57
[2019-10-16] MEDS: OLANZapine 5 MG RAPDIS TABLET PO SCH (21:00)
[2019-10-17] MEDS: NALTREXONE HCL 50 MG TABLET PO SCH ×2 (09:00→14:48)
[2019-10-17] MEDS: FOLIC ACID 1 MG TABLET PO SCH ×2 (09:00→14:48)
[2019-10-17] MEDS: FLUoxetine HCL 20 MG CAPSULE PO SCH ×2 (09:00→14:48)
[2019-10-17] MEDS: MULTIVITAMINS WITH MINERALS, THERAPEUTIC TABLET PO SCH ×2 (09:00→14:48)
[2019-10-17] MEDS: THIAMINE HCL 100 MG TABLET PO SCH ×2 (17:00→17:48)
[2019-10-17 17:24] VITALS: BP 104/59
[2019-10-17] MEDS: OLANZapine 5 MG RAPDIS TABLET PO SCH (21:00)
[2019-10-18 08:33] VITALS: BP 117/69
[2019-10-18] MEDS: THIAMINE HCL 100 MG TABLET PO SCH ×2 (09:00→17:00)
[2019-10-18] MEDS ORDERED: LORazepam 2 MG/ML VIAL ONE (09:56)
[2019-10-18] MEDS ORDERED: DiphenhydrAMINE HCL 50 MG/ML VIAL ONE (09:56)
[2019-10-18] MEDS ORDERED: HALOPERIDOL LACTATE 5 MG/ML VIAL ONE (09:56)
[2019-10-18] MEDS ORDERED: DiphenhydrAMINE HCL 50 MG/ML VIAL IM ONE (10:00)
[2019-10-18] MEDS ORDERED: LORazepam 2 MG/ML VIAL IM ONE (10:00)
[2019-10-18] MEDS ORDERED: HALOPERIDOL LACTATE 5 MG/ML VIAL IM ONE (10:00)
[2019-10-18] MEDS: NALTREXONE HCL 50 MG TABLET PO SCH (10:15)
[2019-10-18] MEDS: MULTIVITAMINS WITH MINERALS, THERAPEUTIC TABLET PO SCH (10:15)
[2019-10-18] MEDS: FOLIC ACID 1 MG TABLET PO SCH (10:15)
[2019-10-18] MEDS: FLUoxetine HCL 20 MG CAPSULE PO SCH (10:15)
[2019-10-18 16:10] VITALS: BP 109/60
[2019-10-18] MEDS: OLANZapine 5 MG RAPDIS TABLET PO SCH (21:00)
[2019-10-19 06:43] VITALS: BP 100/60
[2019-10-19 08:36] VITALS: BP 104/69
[2019-10-19] MEDS: THIAMINE HCL 100 MG TABLET PO SCH ×2 (08:40→16:11)
[2019-10-19] MEDS: OLANZapine 5 MG TABLET PO SCH (10:15)
[2019-10-19] MEDS: LORazepam 2 MG TABLET PO PRN (16:11)
[2019-10-19] MEDS: OLANZapine 5 MG RAPDIS TABLET PO PRN (16:11)
[2019-10-19 17:09] VITALS: BP 127/60
[2019-10-19] MEDS: OLANZapine 10 MG TABLET PO SCH (20:48)
[2019-10-20] MEDS: NALTREXONE HCL 50 MG TABLET PO SCH ×2 (08:17→09:00)
[2019-10-20] MEDS: MULTIVITAMINS WITH MINERALS, THERAPEUTIC TABLET PO SCH ×2 (08:17→09:00)
[2019-10-20] MEDS: OLANZapine 5 MG TABLET PO SCH ×2 (08:17→09:00)
[2019-10-20] MEDS: THIAMINE HCL 100 MG TABLET PO SCH ×3 (08:17→17:00)
[2019-10-20] MEDS: FLUoxetine HCL 20 MG CAPSULE PO SCH ×2 (08:17→09:00)
[2019-10-20] MEDS: FOLIC ACID 1 MG TABLET PO SCH ×2 (08:21→09:00)
[2019-10-20 09:08] VITALS: BP 110/70
[2019-10-20 17:22] VITALS: BP 108/67
[2019-10-20] MEDS ORDERED: NICOTINE 21 MG/24 HOUR PATCH TD PRN (19:45)
[2019-10-20] MEDS: OLANZapine 10 MG TABLET PO SCH (20:30)
[2019-10-21 05:32] VITALS: BP 117/64
[2019-10-21] MEDS: NALTREXONE HCL 50 MG TABLET PO SCH (08:52)
[2019-10-21] MEDS: MULTIVITAMINS WITH MINERALS, THERAPEUTIC TABLET PO SCH (08:52)
[2019-10-21] MEDS: FLUoxetine HCL 20 MG CAPSULE PO SCH (08:52)
[2019-10-21] MEDS: FOLIC ACID 1 MG TABLET PO SCH (08:52)
[2019-10-21] MEDS: THIAMINE HCL 100 MG TABLET PO SCH ×2 (08:53→15:56)
[2019-10-21] MEDS: OLANZapine 5 MG TABLET PO SCH (08:53)
[2019-10-21 16:06] VITALS: BP 129/63
[2019-10-21] MEDS: LORazepam 2 MG TABLET PO PRN (16:18)
[2019-10-21] MEDS: OLANZapine 5 MG RAPDIS TABLET PO PRN (16:18)
[2019-10-21] MEDS: OLANZapine 10 MG TABLET PO SCH (21:20)
[2019-10-22] MEDS: FLUoxetine HCL 20 MG CAPSULE PO SCH (08:08)
[2019-10-22] MEDS: NALTREXONE HCL 50 MG TABLET PO SCH (08:08)
[2019-10-22] MEDS: FOLIC ACID 1 MG TABLET PO SCH (08:08)
[2019-10-22] MEDS: THIAMINE HCL 100 MG TABLET PO SCH (08:08)
[2019-10-22] MEDS: MULTIVITAMINS WITH MINERALS, THERAPEUTIC TABLET PO SCH (08:08)
[2019-10-22] MEDS: OLANZapine 5 MG TABLET PO SCH (08:08)
[2019-10-22 08:10] VITALS: BP 101/64
[2019-10-22] MEDS ORDERED: OLAN5TAB27 PO (09:29)
[2019-10-22] MEDS ORDERED: NALT50TA PO (09:29)
[2019-10-22] MEDS ORDERED: OLAN10TA20 PO (09:29)
[2019-10-22] MEDS ORDERED: FLUO-191 PO (09:29)
== END 2019-10-22 11:03 | disposition home or self-care (01) | DRG 750 ==
LOC: B3A 21:10
DX: F25.0 Schizoaffective disorder, bipolar type (principal); G62.9 Polyneuropathy, unspecified; R45.851 Suicidal ideations; G40.909 Epilepsy, unspecified, not intractable, without status epilepticus; E78.5 Hyperlipidemia, unspecified; F10.10 Alcohol abuse, uncomplicated; F12.90 Cannabis use, unspecified, uncomplicated; F15.90 Other stimulant use, unspecified, uncomplicated; F17.210 Nicotine dependence, cigarettes, uncomplicated; Y90.9 Presence of alcohol in blood, level not specified; K59.00 Constipation, unspecified; F41.9 Anxiety disorder, unspecified; G47.00 Insomnia, unspecified; F19.10 Other psychoactive substance abuse, uncomplicated; I10 Essential (primary) hypertension; Z59.0 Homelessness; Z91.19 Patient's noncompliance with other medical treatment and regimen; Z88.8 Allergy status to other drugs, medicaments and biological substances; Z79.899 Other long term (current) drug therapy; Z91.14 Patient's other noncompliance with medication regimen; Z28.21 Immunization not carried out because of patient refusal
CPT/HCPCS: 90686; J1200; J1630; J2060

== ENCOUNTER 2019-12-06 22:02 | Inpatient (IN) | payer MEDICAID ==
[~2019-12-06] VITALS: Ht 167.6 cm; Wt 69.4 kg
[~2019-12-06 22:02] MED LIST changes: -ARIP10TA8 PO; +FLUO-191 PO; -MIRT-89 PO; +NALT50TA PO; +OLAN10TA20 PO; +OLAN5TAB27 PO; -PRAZ1 PO
[2019-12-06] MEDS ORDERED: NALT50TA6 PO (22:12)
[2019-12-06] MEDS ORDERED: OLAN10TA3 PO (22:12)
[2019-12-06] MEDS ORDERED: OLAN5TAB2 PO (22:12)
[2019-12-06] MEDS ORDERED: FLUO-191 PO (22:12)
[2019-12-06 22:30] VITALS: BP 114/62
[2019-12-06] MEDS ORDERED: ZOLPIDEM TARTRATE 10 MG TABLET PO PRN (22:30)
[2019-12-07 00:01] VITALS: BP 108/74
[2019-12-07] MEDS ORDERED: LORazepam 2 MG/ML VIAL ONE (01:10)
[2019-12-07] MEDS ORDERED: DiphenhydrAMINE HCL 50 MG/ML VIAL ONE (01:10)
[2019-12-07] MEDS ORDERED: HALOPERIDOL LACTATE 5 MG/ML VIAL ONE (01:11)
[2019-12-07] MEDS ORDERED: DiphenhydrAMINE HCL 50 MG/ML VIAL IM ONE (01:15)
[2019-12-07] MEDS ORDERED: LORazepam 2 MG/ML VIAL IM ONE (01:15)
[2019-12-07] MEDS ORDERED: HALOPERIDOL LACTATE 5 MG/ML VIAL IM ONE (01:30)
[2019-12-07 08:04] VITALS: BP 110/70
[2019-12-07] MEDS ORDERED: IBUPROFEN 400 MG TABLET PO PRN (09:30)
[2019-12-07] MEDS ORDERED: ONDANSETRON HCL 4 MG TABLET PO PRN (09:30)
[2019-12-07] MEDS ORDERED: MAG HYDROX/AL HYDROX/SIMETH ES 30 ML SUSPENSION UDCUP PO PRN (09:30)
[2019-12-07] MEDS ORDERED: ALBUTEROL SULFATE HFA 90 MCG/PUFF 8 GM INHALER IH PRN (09:30)
[2019-12-07] MEDS ORDERED: LOPERAMIDE HCL 2 MG CAPSULE PO PRN (09:30)
[2019-12-07] MEDS ORDERED: ACETAMINOPHEN 325 MG TABLET PO PRN (09:30)
[2019-12-07] MEDS ORDERED: PETROLATUM,WHITE 28 GM JELLY TP PRN (09:30)
[2019-12-07] MEDS ORDERED: MAGNESIUM HYDROXIDE SUSPENSION 30 ML UDCUP PO PRN (09:30)
[2019-12-07] MEDS ORDERED: NICOTINE 14 MG/24 HOUR PATCH TD PRN (09:30)
[2019-12-07] MEDS ORDERED: DOCUSATE SODIUM 100 MG CAPSULE PO PRN (09:30)
[2019-12-07] MEDS ORDERED: GuaiFENesin/D-METHORPHAN [SUGAR-FREE] 200-20MG/10 ML SYRUP UDCUP PO PRN (09:30)
[2019-12-07] MEDS ORDERED: CloNIDine HCL 0.1 MG TABLET PO PRN (09:30)
[2019-12-07] MEDS: OLANZapine 5 MG TABLET PO SCH (10:30)
[2019-12-07] MEDS: FLUoxetine HCL 20 MG CAPSULE PO SCH (10:30)
[2019-12-07 16:06] VITALS: BP 116/63
[2019-12-07] MEDS: OLANZapine 10 MG TABLET PO SCH (20:35)
[2019-12-08] MEDS: FLUoxetine HCL 20 MG CAPSULE PO SCH (08:23)
[2019-12-08] MEDS: OLANZapine 5 MG TABLET PO SCH (08:23)
[2019-12-08 13:27] VITALS: BP 114/53
[2019-12-08 16:11] VITALS: BP 126/64
[2019-12-08] MEDS: LORazepam 2 MG TABLET PO PRN (18:44)
[2019-12-08] MEDS: HALOPERIDOL 5 MG TABLET PO PRN (18:44)
[2019-12-08] MEDS: OLANZapine 10 MG TABLET PO SCH (20:18)
[2019-12-09] MEDS: FLUoxetine HCL 20 MG CAPSULE PO SCH (09:00)
[2019-12-09] MEDS: OLANZapine 5 MG TABLET PO SCH (09:00)
[2019-12-09] MEDS: OLANZapine 7.5 MG TABLET PO SCH (20:24)
[2019-12-10 05:30] VITALS: BP 118/66
[2019-12-10] MEDS: FLUoxetine HCL 20 MG CAPSULE PO SCH (09:49)
[2019-12-10] MEDS: OLANZapine 5 MG TABLET PO SCH (09:50)
[2019-12-10] MEDS: HALOPERIDOL 5 MG TABLET PO PRN (12:19)
[2019-12-10] MEDS: LORazepam 2 MG TABLET PO PRN (12:19)
[2019-12-10] MEDS: OLANZapine 7.5 MG TABLET PO SCH (20:45)
[2019-12-11 06:41] VITALS: BP 110/68
[2019-12-11] MEDS: OLANZapine 5 MG TABLET PO SCH (08:17)
[2019-12-11] MEDS: FLUoxetine HCL 20 MG CAPSULE PO SCH (08:17)
[2019-12-11 09:02] VITALS: BP 107/63
[2019-12-11] MEDS: HALOPERIDOL 5 MG TABLET PO PRN (09:51)
[2019-12-11] MEDS: LORazepam 2 MG TABLET PO PRN ×2 (09:51→16:56)
[2019-12-11 16:05] VITALS: BP 106/64
[2019-12-11] MEDS: OLANZapine 7.5 MG TABLET PO SCH (20:55)
[2019-12-12 02:00] VITALS: BP 107/60
[2019-12-12] MEDS: OLANZapine 5 MG TABLET PO SCH (09:02)
[2019-12-12] MEDS: FLUoxetine HCL 20 MG CAPSULE PO SCH (09:02)
== END 2019-12-12 17:10 | disposition home or self-care (01) | DRG 750 ==
LOC: B3A 22:26
PROVIDERS: ADMIT Psychiatry & Neurology Child & Adolescent Psychiatry; ATTEND Psychiatry & Neurology Child & Adolescent Psychiatry
DX: F25.9 Schizoaffective disorder, unspecified (principal); G40.909 Epilepsy, unspecified, not intractable, without status epilepticus; R45.851 Suicidal ideations; K59.00 Constipation, unspecified; Z59.0 Homelessness; Z91.5 Personal history of self-harm; F10.10 Alcohol abuse, uncomplicated
CPT/HCPCS: J1200; J1630; J2060

== ENCOUNTER 2020-07-23 02:35 | Inpatient (IN) | payer MEDICAID, OTHER ==
[~2020-07-23] VITALS: Ht 167.6 cm; Wt 68.2 kg
[~2020-07-23 02:35] MED LIST changes: -NALT50TA PO; -OLAN10TA20 PO; +OLAN10TA3 PO; +OLAN5TAB2 PO; -OLAN5TAB27 PO
[2020-07-23 09:31] LABS: COVID AG,FIA SOURCE NASOPHARYNGEAL
[2020-07-23] MEDS ORDERED: LORazepam 2 MG/ML VIAL IM ONE (09:45)
[2020-07-23] MEDS ORDERED: HALOPERIDOL LACTATE 5 MG/ML VIAL IM ONE (09:45)
[2020-07-23] MEDS ORDERED: DiphenhydrAMINE HCL 50 MG/ML VIAL IM ONE (09:45)
[2020-07-23 11:45] VITALS: BP 101/69
[2020-07-23] MEDS ORDERED: INFLUENZA VIRUS VACCINE QVS 2020-21 (6MO+)/PF 60 MCG/0.5 ML SYRINGE IM ONE (15:45)
[2020-07-23 16:07] VITALS: BP 126/73
[2020-07-23] MEDS: DIVALPROEX SODIUM 500 MG DR TABLET PO SCH (17:03)
[2020-07-23] MEDS: LITHIUM CARBONATE 300 MG CAPSULE PO SCH (17:03)
[2020-07-23] MEDS: TraZODone HCL 100 MG TABLET PO SCH (17:03)
[2020-07-23] MEDS: OLANZapine 10 MG TABLET PO SCH (20:29)
[2020-07-23] MEDS: LORazepam 1 MG TABLET PO PRN (20:30)
[2020-07-24 03:27] VITALS: BP 122/71
[2020-07-24] MEDS ORDERED: PETROLATUM,WHITE 28 GM JELLY TP PRN (06:45)
[2020-07-24] MEDS ORDERED: BENZOCAINE/MENTHOL LOZENGE PO PRN (06:45)
[2020-07-24] MEDS ORDERED: CloNIDine HCL 0.1 MG TABLET PO PRN (06:45)
[2020-07-24] MEDS ORDERED: MAG HYDROX/AL HYDROX/SIMETH ES 30 ML SUSPENSION UDCUP PO PRN (06:45)
[2020-07-24] MEDS ORDERED: MAGNESIUM HYDROXIDE SUSPENSION 30 ML UDCUP PO PRN (06:45)
[2020-07-24] MEDS ORDERED: LOPERAMIDE HCL 2 MG CAPSULE PO PRN (06:45)
[2020-07-24] MEDS ORDERED: OMEPRAZOLE 20 MG CAPSULE PO PRN (06:45)
[2020-07-24] MEDS ORDERED: BACITRACIN 28 GM OINTMENT TP PRN (06:45)
[2020-07-24] MEDS ORDERED: IBUPROFEN 600 MG TABLET PO PRN (06:45)
[2020-07-24] MEDS ORDERED: ONDANSETRON HCL 4 MG TABLET PO PRN (06:45)
[2020-07-24] MEDS ORDERED: DOCUSATE SODIUM 100 MG CAPSULE PO PRN (06:45)
[2020-07-24] MEDS ORDERED: ACETAMINOPHEN 325 MG TABLET PO PRN (06:45)
[2020-07-24] MEDS ORDERED: ALBUTEROL SULFATE HFA 90 MCG/PUFF 8 GM INHALER IH PRN (06:45)
[2020-07-24] MEDS: LITHIUM CARBONATE 300 MG CAPSULE PO SCH ×2 (08:37→16:37)
[2020-07-24] MEDS: DIVALPROEX SODIUM 500 MG DR TABLET PO SCH ×2 (08:37→16:37)
[2020-07-24] MEDS: LORazepam 1 MG TABLET PO PRN ×2 (08:37→16:37)
[2020-07-24] MEDS: TraZODone HCL 100 MG TABLET PO SCH ×3 (08:37→16:37)
[2020-07-24 16:10] VITALS: BP 116/63
[2020-07-24] MEDS: HALOPERIDOL 5 MG TABLET PO PRN (16:37)
[2020-07-24] MEDS: OLANZapine 10 MG TABLET PO SCH (20:40)
[2020-07-25 05:21] VITALS: BP 103/67
[2020-07-25] MEDS: DIVALPROEX SODIUM 500 MG DR TABLET PO SCH ×2 (09:07→16:27)
[2020-07-25] MEDS: RisperiDONE 2 MG TABLET PO SCH ×2 (09:07→16:27)
[2020-07-25] MEDS: TraZODone HCL 100 MG TABLET PO SCH ×3 (09:07→16:27)
[2020-07-25] MEDS: LITHIUM CARBONATE 300 MG CAPSULE PO SCH ×2 (09:07→16:27)
[2020-07-25] MEDS: LORazepam 1 MG TABLET PO PRN (16:28)
[2020-07-25 16:44] VITALS: BP 112/66
[2020-07-25] MEDS: ZOLPIDEM TARTRATE 10 MG TABLET PO PRN (20:20)
[2020-07-25] MEDS: OLANZapine 10 MG TABLET PO SCH (20:20)
[2020-07-26 06:43] VITALS: BP 100/60
[2020-07-26 08:59] VITALS: BP 122/79
[2020-07-26] MEDS: TraZODone HCL 100 MG TABLET PO SCH ×3 (09:00→16:35)
[2020-07-26] MEDS: DIVALPROEX SODIUM 500 MG DR TABLET PO SCH ×2 (09:00→16:35)
[2020-07-26] MEDS: RisperiDONE 2 MG TABLET PO SCH ×2 (09:00→16:35)
[2020-07-26] MEDS: LITHIUM CARBONATE 300 MG CAPSULE PO SCH ×2 (09:00→16:35)
[2020-07-26 16:18] VITALS: BP 116/64
[2020-07-26] MEDS ORDERED: LORazepam 2 MG/ML VIAL ONE (16:39)
[2020-07-26] MEDS ORDERED: LORazepam 2 MG/ML VIAL IM ONE (16:40)
[2020-07-26] MEDS ORDERED: HALOPERIDOL LACTATE 5 MG/ML VIAL ONE (16:40)
[2020-07-26] MEDS ORDERED: HALOPERIDOL LACTATE 5 MG/ML VIAL IM ONE (16:40)
[2020-07-26 17:13] VITALS: BP 107/69
[2020-07-26] MEDS: OLANZapine 10 MG TABLET PO SCH (21:09)
[2020-07-27 04:24] VITALS: BP 107/67
[2020-07-27 08:45] VITALS: BP 109/65
[2020-07-27] MEDS: RisperiDONE 2 MG TABLET PO SCH ×2 (09:00→16:26)
[2020-07-27] MEDS: LITHIUM CARBONATE 300 MG CAPSULE PO SCH ×2 (09:00→16:25)
[2020-07-27] MEDS: TraZODone HCL 100 MG TABLET PO SCH ×3 (09:00→16:25)
[2020-07-27] MEDS: DIVALPROEX SODIUM 500 MG DR TABLET PO SCH ×2 (09:00→16:25)
[2020-07-27 10:26] LABS: LITHIUM < 0.20 mmol/L (0.60-1.20)
[2020-07-27 11:06] LABS: CHOL/HDL RATIO 2.6 (4.2-7.3); CHOLESTEROL 134 mg/dL (131-200); FREE T4 (FREE THYROXINE) 0.75 ng/dL (0.76-1.46); HDL CHOLESTEROL 51 mg/dL (40-60); LDL CHOL (CALC.) 68 mg/dL (0-130); THYROID STIMULATING HORMONE 6.19 uIU/mL (0.36-3.74); TRIGLYCERIDES 77 mg/dL (15-150); VALPROIC ACID 12 mcg/mL (50-100)
[2020-07-27 16:08] VITALS: BP 102/62
[2020-07-27] MEDS: LORazepam 1 MG TABLET PO PRN (17:35)
[2020-07-27] MEDS: HALOPERIDOL 5 MG TABLET PO PRN (17:35)
[2020-07-27] MEDS: OLANZapine 10 MG TABLET PO SCH (21:27)
[2020-07-28 05:28] VITALS: BP 110/64
[2020-07-28 08:06] VITALS: BP 107/67
[2020-07-28] MEDS: TraZODone HCL 100 MG TABLET PO SCH ×3 (09:00→17:10)
[2020-07-28] MEDS: LITHIUM CARBONATE 300 MG CAPSULE PO SCH ×2 (09:00→17:00)
[2020-07-28] MEDS: DIVALPROEX SODIUM 500 MG DR TABLET PO SCH ×2 (09:00→17:00)
[2020-07-28] MEDS: RisperiDONE 2 MG TABLET PO SCH ×2 (09:00→17:10)
[2020-07-28] MEDS: LORazepam 1 MG TABLET PO PRN ×2 (12:38→17:10)
[2020-07-28 16:00] VITALS: BP 101/60
[2020-07-28] MEDS: OLANZapine 10 MG TABLET PO SCH (20:37)
[2020-07-28] MEDS: ZOLPIDEM TARTRATE 10 MG TABLET PO PRN (20:37)
[2020-07-29 01:35] VITALS: BP 109/71
[2020-07-29 08:06] VITALS: BP 108/67
[2020-07-29] MEDS: TraZODone HCL 100 MG TABLET PO SCH ×3 (09:32→16:55)
[2020-07-29] MEDS: DIVALPROEX SODIUM 500 MG DR TABLET PO SCH ×2 (09:32→16:55)
[2020-07-29] MEDS: LITHIUM CARBONATE 300 MG CAPSULE PO SCH ×2 (09:32→16:55)
[2020-07-29] MEDS: RisperiDONE 2 MG TABLET PO SCH ×2 (09:32→16:55)
[2020-07-29] MEDS: LORazepam 1 MG TABLET PO PRN ×2 (09:32→16:55)
[2020-07-29 16:12] VITALS: BP 117/69
[2020-07-29] MEDS: OLANZapine 10 MG TABLET PO SCH (20:35)
[2020-07-30 08:07] VITALS: BP 116/70
[2020-07-30] MEDS: TraZODone HCL 100 MG TABLET PO SCH ×2 (10:02→12:58)
[2020-07-30] MEDS: RisperiDONE 2 MG TABLET PO SCH (10:02)
[2020-07-30] MEDS: LITHIUM CARBONATE 300 MG CAPSULE PO SCH (10:02)
[2020-07-30] MEDS: DIVALPROEX SODIUM 500 MG DR TABLET PO SCH (10:02)
[2020-07-30] MEDS ORDERED: LITH300C3 PO (14:05)
[2020-07-30] MEDS ORDERED: DIVA-80 PO (14:06)
[2020-07-30] MEDS ORDERED: RISP2TAB45 PO (14:06)
[2020-07-30] MEDS ORDERED: TRAZ-257 PO (14:07)
[2020-07-30] MEDS ORDERED: OLAN10TA3 PO (14:07)
== END 2020-07-30 15:45 | disposition home or self-care (01) | DRG 750 ==
LOC: EMS 02:37 → B3A 08:39
PROVIDERS: ADMIT Psychiatry & Neurology Psychiatry; ATTEND Psychiatry & Neurology Psychiatry
DX: F25.0 Schizoaffective disorder, bipolar type (principal); F41.9 Anxiety disorder, unspecified; G47.00 Insomnia, unspecified; K59.00 Constipation, unspecified; F19.10 Other psychoactive substance abuse, uncomplicated; F31.9 Bipolar disorder, unspecified; R56.9 Unspecified convulsions; F12.90 Cannabis use, unspecified, uncomplicated; F17.210 Nicotine dependence, cigarettes, uncomplicated; R45.851 Suicidal ideations; Z88.8 Allergy status to other drugs, medicaments and biological substances; Z20.822 Contact with and (suspected) exposure to COVID-19
CPT/HCPCS: 84436; 84439; 84443; 87426; J1200; J1630; J2060

== ENCOUNTER 2020-08-03 17:04 | Inpatient (IN) | payer MEDICAID, OTHER ==
[~2020-08-03] VITALS: Ht 172.7 cm; Wt 72.3 kg
[~2020-08-03 17:04] MED LIST changes: +DIVA-80 PO; -FLUO-191 PO; +LITH300C3 PO; -OLAN5TAB2 PO; +RISP2TAB45 PO; +TRAZ-257 PO
[2020-08-03 18:35] LABS: COVID AG,FIA SOURCE NASOPHARYNGEAL
[2020-08-03 19:19] LABS: BASOPHILS % (AUTO) 0.3 % (0.0-2.0); EOSINOPHILS % (AUTO) 0.9 % (1.0-6.0); HEMATOCRIT 45.1 % (41-53); HEMOGLOBIN 15.1 g/dL (13.5-17.5); LYMPHOCYTES # (AUTO) 1.6 K/uL (1.0-4.8); MEAN CORPUSCULAR HEMOGLOBIN 30.5 pg (26.0-34.0); MEAN CORPUSCULAR HGB CONC 33.6 G/dL (31.0-37.0); MEAN CORPUSCULAR VOLUME 91 fL (80-100); MONOCYTES # (AUTO) 0.7 K/uL (0.1-1.0); NEUTROPHILS # (AUTO) 6.1 K/uL (1.8-7.7); NEUTROPHILS % (AUTO) 71.8 % (40.0-70.0); PLATELET COUNT (AUTO) 186 K/uL (150-450); RED BLOOD CELL COUNT(AUTO) 4.95 MIL/uL (4.50-5.90); RED CELL DISTRIBUTION WIDTH 13.6 % (11.5-14.5)
[2020-08-03 19:45] LABS: ANION GAP 8 mmol/L (8-16); CALCIUM, TOTAL 9.7 mg/dL (8.8-10.5); CARBON DIOXIDE 29 mmol/L (22-29); CHLORIDE 103 mmol/L (98-107); GLOMERULAR FILTR. RATE CALC > 60 mL/min (>60); GLUCOSE,RANDOM 99 mg/dL (70-110); POTASSIUM 4.1 mmol/L (3.5-5.1); SODIUM SERUM 140 mmol/L (136-145); UREA NITROGEN, BLOOD 12 mg/dL (7-18)
[2020-08-03 19:55] LABS: ALANINE AMINOTRANSFERASE 32 U/L (12-78); ALBUMIN 4.6 g/dL (3.4-5.0); ALKALINE PHOSPHATASE 90 U/L (46-116); ASPARTATE AMINOTRANSFERASE 34 U/L (15-37); BILIRUBIN,TOTAL 0.5 mg/dL (0.1-1.0); TOTAL PROTEIN, SERUM 8.1 g/dL (6.4-8.2)
[2020-08-04 01:19] VITALS: BP 127/78
[2020-08-04] MEDS ORDERED: INFLUENZA VIRUS VACCINE QVS 2020-21 (6MO+)/PF 60 MCG/0.5 ML SYRINGE IM ONE (01:45)
[2020-08-04 07:53] LABS: CHOL/HDL RATIO 2.2 (4.2-7.3)
[2020-08-04] MEDS ORDERED: MAG HYDROX/AL HYDROX/SIMETH ES 30 ML SUSPENSION UDCUP PO PRN (13:00)
[2020-08-04] MEDS ORDERED: CloNIDine HCL 0.1 MG TABLET PO PRN (13:00)
[2020-08-04] MEDS ORDERED: ACETAMINOPHEN 325 MG TABLET PO PRN (13:00)
[2020-08-04] MEDS ORDERED: OMEPRAZOLE 20 MG CAPSULE PO PRN (13:00)
[2020-08-04] MEDS ORDERED: BENZOCAINE/MENTHOL LOZENGE PO PRN (13:00)
[2020-08-04] MEDS ORDERED: ALBUTEROL SULFATE HFA 90 MCG/PUFF 8 GM INHALER IH PRN (13:00)
[2020-08-04] MEDS ORDERED: ONDANSETRON HCL 4 MG TABLET PO PRN (13:00)
[2020-08-04] MEDS ORDERED: MAGNESIUM HYDROXIDE SUSPENSION 30 ML UDCUP PO PRN (13:00)
[2020-08-04] MEDS ORDERED: DOCUSATE SODIUM 100 MG CAPSULE PO PRN (13:00)
[2020-08-04] MEDS ORDERED: BACITRACIN 28 GM OINTMENT TP PRN (13:00)
[2020-08-04] MEDS ORDERED: LOPERAMIDE HCL 2 MG CAPSULE PO PRN (13:00)
[2020-08-04] MEDS ORDERED: IBUPROFEN 600 MG TABLET PO PRN (13:00)
[2020-08-04] MEDS ORDERED: PETROLATUM,WHITE 28 GM JELLY TP PRN (13:00)
[2020-08-04 17:16] VITALS: BP 109/72
[2020-08-05 08:23] VITALS: BP 93/105
[2020-08-05] MEDS: LORazepam 2 MG TABLET PO PRN ×2 (11:41→18:11)
[2020-08-05] MEDS: HALOPERIDOL 5 MG TABLET PO PRN ×2 (11:41→18:11)
[2020-08-05 17:21] VITALS: BP 100/72
[2020-08-05] MEDS: OLANZapine 10 MG TABLET PO SCH (20:57)
[2020-08-06] MEDS: DIVALPROEX SODIUM 500 MG DR TABLET PO SCH ×2 (09:11→16:58)
[2020-08-06] MEDS: LORazepam 2 MG TABLET PO PRN ×2 (09:11→16:58)
[2020-08-06] MEDS: LITHIUM CARBONATE 300 MG CAPSULE PO SCH ×2 (09:11→16:58)
[2020-08-06] MEDS: TraZODone HCL 100 MG TABLET PO SCH ×3 (09:11→16:58)
[2020-08-06] MEDS: HALOPERIDOL 5 MG TABLET PO PRN (09:12)
[2020-08-06 16:25] VITALS: BP 106/66
[2020-08-06] MEDS: ZOLPIDEM TARTRATE 10 MG TABLET PO PRN (20:08)
[2020-08-06] MEDS: OLANZapine 10 MG TABLET PO SCH (20:08)
[2020-08-07] MEDS: TraZODone HCL 100 MG TABLET PO SCH ×3 (09:01→16:41)
[2020-08-07] MEDS: DIVALPROEX SODIUM 500 MG DR TABLET PO SCH ×2 (09:01→16:41)
[2020-08-07] MEDS: HALOPERIDOL 5 MG TABLET PO PRN (09:01)
[2020-08-07] MEDS: LORazepam 2 MG TABLET PO PRN ×2 (09:01→16:41)
[2020-08-07] MEDS: LITHIUM CARBONATE 300 MG CAPSULE PO SCH ×2 (09:01→16:41)
[2020-08-07 16:18] VITALS: BP 104/68
[2020-08-07] MEDS: OLANZapine 10 MG TABLET PO SCH (20:30)
[2020-08-08 04:13] VITALS: BP 102/63
[2020-08-08 08:32] VITALS: BP 105/62
[2020-08-08] MEDS: DIVALPROEX SODIUM 500 MG DR TABLET PO SCH ×2 (09:12→16:32)
[2020-08-08] MEDS: LITHIUM CARBONATE 300 MG CAPSULE PO SCH ×2 (09:12→16:32)
[2020-08-08] MEDS: TraZODone HCL 100 MG TABLET PO SCH ×3 (09:12→16:32)
[2020-08-08 16:08] VITALS: BP 101/58
[2020-08-08] MEDS: LORazepam 2 MG TABLET PO PRN (16:32)
[2020-08-08] MEDS: ZOLPIDEM TARTRATE 10 MG TABLET PO PRN (20:31)
[2020-08-08] MEDS: OLANZapine 10 MG TABLET PO SCH (20:31)
[2020-08-09 06:29] VITALS: BP 114/68
[2020-08-09 08:36] VITALS: BP 108/68
[2020-08-09] MEDS: MULTIVITAMINS WITH MINERALS, THERAPEUTIC TABLET PO SCH (09:05)
[2020-08-09] MEDS: TraZODone HCL 100 MG TABLET PO SCH ×3 (09:05→16:31)
[2020-08-09] MEDS: LITHIUM CARBONATE 300 MG CAPSULE PO SCH ×2 (09:05→16:30)
[2020-08-09] MEDS: DIVALPROEX SODIUM 500 MG DR TABLET PO SCH ×2 (09:05→16:30)
[2020-08-09] MEDS: LORazepam 2 MG TABLET PO PRN (14:20)
[2020-08-09 16:12] VITALS: BP 107/64
[2020-08-09] MEDS: OLANZapine 10 MG TABLET PO SCH (20:26)
[2020-08-10 08:25] VITALS: BP 109/78
[2020-08-10] MEDS: DIVALPROEX SODIUM 500 MG DR TABLET PO SCH ×2 (09:00→16:15)
[2020-08-10] MEDS: MULTIVITAMINS WITH MINERALS, THERAPEUTIC TABLET PO SCH (09:00)
[2020-08-10] MEDS: TraZODone HCL 100 MG TABLET PO SCH ×3 (09:00→16:15)
[2020-08-10] MEDS: LITHIUM CARBONATE 300 MG CAPSULE PO SCH ×2 (09:00→16:15)
[2020-08-10 16:23] VITALS: BP 111/72
[2020-08-10] MEDS: NICOTINE 21 MG/24 HOUR PATCH TD PRN (18:43)
[2020-08-10] MEDS: OLANZapine 10 MG TABLET PO SCH (20:11)
[2020-08-11 06:22] VITALS: BP 115/73
[2020-08-11 08:27] VITALS: BP 107/67
[2020-08-11] MEDS: LITHIUM CARBONATE 300 MG CAPSULE PO SCH ×2 (08:43→16:42)
[2020-08-11] MEDS: TraZODone HCL 100 MG TABLET PO SCH ×3 (08:43→16:42)
[2020-08-11] MEDS: MULTIVITAMINS WITH MINERALS, THERAPEUTIC TABLET PO SCH (08:43)
[2020-08-11] MEDS: DIVALPROEX SODIUM 500 MG DR TABLET PO SCH ×2 (08:43→16:42)
[2020-08-11 16:14] VITALS: BP 128/71
[2020-08-11] MEDS: LORazepam 2 MG TABLET PO PRN (16:42)
[2020-08-11] MEDS: ZOLPIDEM TARTRATE 10 MG TABLET PO PRN (20:29)
[2020-08-11] MEDS: OLANZapine 10 MG TABLET PO SCH (20:29)
[2020-08-12 04:17] VITALS: BP 120/68
[2020-08-12] MEDS: LORazepam 2 MG TABLET PO PRN ×2 (08:47→19:18)
[2020-08-12] MEDS: LITHIUM CARBONATE 300 MG CAPSULE PO SCH ×2 (08:47→16:50)
[2020-08-12] MEDS: MULTIVITAMINS WITH MINERALS, THERAPEUTIC TABLET PO SCH (08:47)
[2020-08-12] MEDS: TraZODone HCL 100 MG TABLET PO SCH ×3 (08:47→16:50)
[2020-08-12] MEDS: DIVALPROEX SODIUM 500 MG DR TABLET PO SCH ×2 (08:47→16:50)
[2020-08-12 17:07] VITALS: BP 117/79
[2020-08-12] MEDS: HALOPERIDOL 5 MG TABLET PO PRN (19:18)
[2020-08-12] MEDS: OLANZapine 10 MG TABLET PO SCH (20:35)
[2020-08-13 01:14] VITALS: BP 110/69
[2020-08-13 08:17] VITALS: BP 92/61
[2020-08-13] MEDS: LORazepam 2 MG TABLET PO PRN ×2 (08:40→16:49)
[2020-08-13] MEDS: MULTIVITAMINS WITH MINERALS, THERAPEUTIC TABLET PO SCH (08:40)
[2020-08-13] MEDS: TraZODone HCL 100 MG TABLET PO SCH ×3 (08:40→16:49)
[2020-08-13] MEDS: DIVALPROEX SODIUM 500 MG DR TABLET PO SCH ×2 (08:40→16:49)
[2020-08-13] MEDS: LITHIUM CARBONATE 300 MG CAPSULE PO SCH ×2 (08:40→16:49)
[2020-08-13 16:21] VITALS: BP 115/68
[2020-08-13] MEDS: OLANZapine 10 MG TABLET PO SCH (20:27)
[2020-08-14 00:13] VITALS: BP 113/74
[2020-08-14] MEDS: LITHIUM CARBONATE 300 MG CAPSULE PO SCH ×2 (09:27→16:05)
[2020-08-14] MEDS: TraZODone HCL 100 MG TABLET PO SCH ×3 (09:27→16:05)
[2020-08-14] MEDS: DIVALPROEX SODIUM 500 MG DR TABLET PO SCH ×2 (09:27→16:05)
[2020-08-14] MEDS: MULTIVITAMINS WITH MINERALS, THERAPEUTIC TABLET PO SCH (09:27)
[2020-08-14 16:06] VITALS: BP 105/59
[2020-08-14] MEDS: NICOTINE 21 MG/24 HOUR PATCH TD PRN (17:33)
[2020-08-14] MEDS: OLANZapine 10 MG TABLET PO SCH (20:15)
[2020-08-14] MEDS: LORazepam 2 MG TABLET PO PRN (21:01)
[2020-08-14] MEDS: HALOPERIDOL 5 MG TABLET PO PRN (21:01)
[2020-08-14] MEDS: ZOLPIDEM TARTRATE 10 MG TABLET PO PRN (21:02)
[2020-08-15 05:17] VITALS: BP 115/70
[2020-08-15] MEDS: DIVALPROEX SODIUM 500 MG DR TABLET PO SCH (08:32)
[2020-08-15] MEDS: TraZODone HCL 100 MG TABLET PO SCH (08:32)
[2020-08-15] MEDS: LITHIUM CARBONATE 300 MG CAPSULE PO SCH (08:32)
[2020-08-15] MEDS: LORazepam 2 MG TABLET PO PRN (08:32)
[2020-08-15] MEDS: MULTIVITAMINS WITH MINERALS, THERAPEUTIC TABLET PO SCH (08:32)
[2020-08-15 08:33] VITALS: BP 105/73
[2020-08-15] MEDS ORDERED: LITH300C3 PO (08:57)
[2020-08-15] MEDS ORDERED: DIVA-112 PO (08:57)
[2020-08-15] MEDS ORDERED: OLAN10TA3 PO (08:57)
== END 2020-08-15 15:35 | disposition home or self-care (01) | DRG 750 ==
LOC: EMS 17:04 → B3A 21:00
PROVIDERS: ADMIT Psychiatry & Neurology Psychiatry; ATTEND Psychiatry & Neurology Psychiatry
DX: F25.9 Schizoaffective disorder, unspecified (principal); F31.9 Bipolar disorder, unspecified; R45.851 Suicidal ideations; F12.90 Cannabis use, unspecified, uncomplicated; F41.9 Anxiety disorder, unspecified; R56.9 Unspecified convulsions; Z91.19 Patient's noncompliance with other medical treatment and regimen; Z87.891 Personal history of nicotine dependence
CPT/HCPCS: 87081; 87426; 99285; G0480

== ENCOUNTER 2020-09-21 17:30 | Inpatient (IN) | payer MEDICAID ==
[~2020-09-21] VITALS: Ht 172.7 cm; Wt 78.6 kg
[~2020-09-21 17:30] MED LIST changes: +DIVA-112 PO; -DIVA-80 PO; -RISP2TAB45 PO; -TRAZ-257 PO
[2020-09-21 19:57] LABS: COVID AG,FIA SOURCE NASAL SWAB
[2020-09-21] MEDS ORDERED: INFLUENZA VIRUS VACCINE QVS 2020-21 (6MO+)/PF 60 MCG/0.5 ML SYRINGE IM ONE (20:45)
[2020-09-21 21:00] VITALS: BP 126/78
[2020-09-22] MEDS ORDERED: BACITRACIN 28 GM OINTMENT TP PRN (08:00)
[2020-09-22] MEDS ORDERED: ALBUTEROL SULFATE HFA 90 MCG/PUFF 8 GM INHALER IH PRN (08:00)
[2020-09-22] MEDS ORDERED: DOCUSATE SODIUM 100 MG CAPSULE PO PRN (08:00)
[2020-09-22] MEDS ORDERED: ONDANSETRON HCL 4 MG TABLET PO PRN (08:00)
[2020-09-22] MEDS ORDERED: LOPERAMIDE HCL 2 MG CAPSULE PO PRN (08:00)
[2020-09-22] MEDS ORDERED: MAG HYDROX/AL HYDROX/SIMETH ES 30 ML SUSPENSION UDCUP PO PRN (08:00)
[2020-09-22] MEDS ORDERED: CloNIDine HCL 0.1 MG TABLET PO PRN (08:00)
[2020-09-22] MEDS ORDERED: IBUPROFEN 600 MG TABLET PO PRN (08:00)
[2020-09-22] MEDS ORDERED: OMEPRAZOLE 20 MG CAPSULE PO PRN (08:00)
[2020-09-22] MEDS ORDERED: BENZOCAINE/MENTHOL LOZENGE PO PRN (08:00)
[2020-09-22] MEDS ORDERED: MAGNESIUM HYDROXIDE SUSPENSION 30 ML UDCUP PO PRN (08:00)
[2020-09-22] MEDS ORDERED: ACETAMINOPHEN 325 MG TABLET PO PRN (08:00)
[2020-09-22] MEDS ORDERED: PETROLATUM,WHITE 28 GM JELLY TP PRN (08:00)
[2020-09-22] MEDS: NICOTINE 21 MG/24 HOUR PATCH TD SCH (08:39)
[2020-09-22 08:59] VITALS: BP 100/60
[2020-09-22 09:48] LABS: BASOPHILS % (AUTO) 0.5 % (0.0-2.0); EOSINOPHILS % (AUTO) 2.5 % (1.0-6.0); HEMATOCRIT 41.4 % (41-53); LYMPHOCYTES # (AUTO) 1.2 K/uL (1.0-4.8); LYMPHOCYTES % (AUTO) 22.3 % (22.0-44.0); MEAN CORPUSCULAR HEMOGLOBIN 30.6 pg (26.0-34.0); MEAN CORPUSCULAR HGB CONC 33.8 G/dL (31.0-37.0); MEAN CORPUSCULAR VOLUME 91 fL (80-100); MONOCYTES # (AUTO) 0.8 K/uL (0.1-1.0); MONOCYTES % (AUTO) 13.9 % (2.0-9.0); NEUTROPHILS # (AUTO) 3.4 K/uL (1.8-7.7); NEUTROPHILS % (AUTO) 60.8 % (40.0-70.0); PLATELET COUNT (AUTO) 168 K/uL (150-450); RED BLOOD CELL COUNT(AUTO) 4.56 MIL/uL (4.50-5.90); RED CELL DISTRIBUTION WIDTH 14.9 % (11.5-14.5)
[2020-09-22 10:04] LABS: HEMOGLOBIN A1C 4.7 % (3.8-5.6)
[2020-09-22 10:22] LABS: ALANINE AMINOTRANSFERASE 45 U/L (12-78); ALBUMIN 3.7 g/dL (3.4-5.0); ALKALINE PHOSPHATASE 59 U/L (46-116); ANION GAP 10 mmol/L (8-16); ASPARTATE AMINOTRANSFERASE 42 U/L (15-37); BILIRUBIN,TOTAL 0.6 mg/dL (0.1-1.0); CARBON DIOXIDE 25 mmol/L (22-29); CHLORIDE 106 mmol/L (98-107); CHOL/HDL RATIO 2.6 (4.2-7.3); CHOLESTEROL 160 mg/dL (131-200); CREATININE 1.01 mg/dL (0.60-1.30); FREE T4 (FREE THYROXINE) 0.84 ng/dL (0.76-1.46); GLOMERULAR FILTR. RATE CALC > 60 mL/min (>60); GLUCOSE,RANDOM 96 mg/dL (70-110); HDL CHOLESTEROL 62 mg/dL (40-60); LDL CHOL (CALC.) 88 mg/dL (0-130); POTASSIUM 4.2 mmol/L (3.5-5.1); SODIUM SERUM 141 mmol/L (136-145); THYROID STIMULATING HORMONE 6.22 uIU/mL (0.36-3.74); TOTAL PROTEIN, SERUM 6.6 g/dL (6.4-8.2); TRIGLYCERIDES 49 mg/dL (15-150); UREA NITROGEN, BLOOD 19 mg/dL (7-18)
[2020-09-22] MEDS: TraZODone HCL 100 MG TABLET PO SCH ×2 (12:27→16:54)
[2020-09-22 16:34] VITALS: BP 102/62
[2020-09-22] MEDS: DIVALPROEX SODIUM 500 MG DR TABLET PO SCH (16:53)
[2020-09-22] MEDS: LITHIUM CARBONATE 300 MG CAPSULE PO SCH (16:53)
[2020-09-22] MEDS: OLANZapine 10 MG TABLET PO SCH (21:48)
[2020-09-23 04:32] VITALS: BP 108/68
[2020-09-23] MEDS: LEVOTHYROXINE SODIUM 75 MCG TABLET PO SCH (06:30)
[2020-09-23] MEDS ORDERED: LEVOTHYROXINE SODIUM 100 MCG TABLET PO SCH (06:30)
[2020-09-23 08:15] VITALS: BP 108/68
[2020-09-23] MEDS: TraZODone HCL 100 MG TABLET PO SCH ×3 (09:26→16:49)
[2020-09-23] MEDS: DIVALPROEX SODIUM 500 MG DR TABLET PO SCH ×2 (09:26→16:49)
[2020-09-23] MEDS: LITHIUM CARBONATE 300 MG CAPSULE PO SCH ×2 (09:26→16:49)
[2020-09-23] MEDS: NICOTINE 21 MG/24 HOUR PATCH TD SCH (09:27)
[2020-09-23 16:31] VITALS: BP 102/66
[2020-09-23] MEDS: OLANZapine 10 MG TABLET PO SCH (20:26)
[2020-09-24 00:21] VITALS: BP 101/69
[2020-09-24] MEDS: LEVOTHYROXINE SODIUM 75 MCG TABLET PO SCH (06:30)
[2020-09-24 08:43] VITALS: BP 108/70
[2020-09-24] MEDS: TraZODone HCL 100 MG TABLET PO SCH ×3 (09:00→16:57)
[2020-09-24] MEDS: NICOTINE 21 MG/24 HOUR PATCH TD SCH (09:00)
[2020-09-24] MEDS: LITHIUM CARBONATE 300 MG CAPSULE PO SCH ×2 (09:00→16:57)
[2020-09-24] MEDS: DIVALPROEX SODIUM 500 MG DR TABLET PO SCH ×2 (09:00→16:57)
[2020-09-24] MEDS: LORazepam 2 MG TABLET PO PRN (15:13)
[2020-09-24] MEDS: HALOPERIDOL 5 MG TABLET PO PRN (15:13)
[2020-09-24 17:24] VITALS: BP 109/72
[2020-09-24] MEDS: OLANZapine 10 MG TABLET PO SCH (20:21)
[2020-09-25 03:46] VITALS: BP 106/70
[2020-09-25] MEDS: LEVOTHYROXINE SODIUM 75 MCG TABLET PO SCH (07:03)
[2020-09-25] MEDS: NICOTINE 21 MG/24 HOUR PATCH TD SCH (09:00)
[2020-09-25 09:24] VITALS: BP 109/67
[2020-09-25] MEDS: DIVALPROEX SODIUM 500 MG DR TABLET PO SCH ×2 (09:31→17:05)
[2020-09-25] MEDS: LITHIUM CARBONATE 300 MG CAPSULE PO SCH ×2 (09:31→17:05)
[2020-09-25] MEDS: TraZODone HCL 100 MG TABLET PO SCH ×3 (09:31→20:00)
[2020-09-25] MEDS: TraZODone HCL 50 MG TABLET PO SCH (17:05)
[2020-09-25 17:17] VITALS: BP 106/62
[2020-09-25] MEDS: OLANZapine 10 MG TABLET PO SCH (20:00)
[2020-09-26 05:03] VITALS: BP 103/68
[2020-09-26] MEDS: LEVOTHYROXINE SODIUM 75 MCG TABLET PO SCH (06:30)
[2020-09-26] MEDS: NICOTINE 21 MG/24 HOUR PATCH TD SCH (09:00)
[2020-09-26 09:06] VITALS: BP 107/68
[2020-09-26] MEDS: LITHIUM CARBONATE 300 MG CAPSULE PO SCH ×2 (09:58→18:12)
[2020-09-26] MEDS: DIVALPROEX SODIUM 500 MG DR TABLET PO SCH ×2 (09:58→18:12)
[2020-09-26] MEDS: TraZODone HCL 50 MG TABLET PO SCH ×2 (09:58→18:13)
[2020-09-26 17:24] VITALS: BP 103/62
[2020-09-26] MEDS ORDERED: NICOTINE POLACRILEX 2 MG LOZENGE PO PRN (17:45)
[2020-09-26] MEDS: HALOPERIDOL 5 MG TABLET PO PRN (18:22)
[2020-09-26] MEDS: LORazepam 2 MG TABLET PO PRN (18:22)
[2020-09-26] MEDS: TraZODone HCL 100 MG TABLET PO SCH (21:21)
[2020-09-26] MEDS: OLANZapine 10 MG TABLET PO SCH (21:21)
[2020-09-27 04:40] VITALS: BP 108/69
[2020-09-27] MEDS: LEVOTHYROXINE SODIUM 75 MCG TABLET PO SCH (06:30)
[2020-09-27 08:49] VITALS: BP 93/53
[2020-09-27] MEDS: LITHIUM CARBONATE 300 MG CAPSULE PO SCH ×2 (09:21→17:36)
[2020-09-27] MEDS: DIVALPROEX SODIUM 500 MG DR TABLET PO SCH ×2 (09:21→17:36)
[2020-09-27] MEDS: NICOTINE 21 MG/24 HOUR PATCH TD SCH (09:21)
[2020-09-27] MEDS: TraZODone HCL 50 MG TABLET PO SCH ×2 (09:31→17:36)
[2020-09-27] MEDS: LORazepam 2 MG TABLET PO PRN ×2 (09:34→17:36)
[2020-09-27 17:33] VITALS: BP 105/62
[2020-09-27] MEDS: TraZODone HCL 100 MG TABLET PO SCH (20:35)
[2020-09-27] MEDS: OLANZapine 10 MG TABLET PO SCH (20:35)
[2020-09-28 05:50] VITALS: BP 99/59
[2020-09-28] MEDS: LEVOTHYROXINE SODIUM 75 MCG TABLET PO SCH (06:52)
[2020-09-28 08:23] VITALS: BP 102/68
[2020-09-28 08:31] LABS: COVID AG,FIA SOURCE NASAL SWAB
[2020-09-28] MEDS: TraZODone HCL 50 MG TABLET PO SCH ×2 (09:54→16:45)
[2020-09-28] MEDS: HALOPERIDOL 5 MG TABLET PO PRN (09:54)
[2020-09-28] MEDS: LORazepam 2 MG TABLET PO PRN (09:54)
[2020-09-28] MEDS: LITHIUM CARBONATE 300 MG CAPSULE PO SCH ×2 (09:54→16:43)
[2020-09-28] MEDS: DIVALPROEX SODIUM 500 MG DR TABLET PO SCH ×2 (09:54→17:09)
[2020-09-28 16:33] VITALS: BP 110/64
[2020-09-28] MEDS: NICOTINE 21 MG/24 HOUR PATCH TD SCH (16:45)
[2020-09-28] MEDS: TraZODone HCL 100 MG TABLET PO SCH (21:15)
[2020-09-28] MEDS: OLANZapine 10 MG TABLET PO SCH (21:15)
[2020-09-29 00:47] VITALS: BP 110/62
[2020-09-29] MEDS: LEVOTHYROXINE SODIUM 75 MCG TABLET PO SCH (06:26)
[2020-09-29 09:05] VITALS: BP 109/64
[2020-09-29] MEDS: DIVALPROEX SODIUM 500 MG DR TABLET PO SCH ×2 (09:14→16:49)
[2020-09-29] MEDS: TraZODone HCL 50 MG TABLET PO SCH ×2 (09:14→16:49)
[2020-09-29] MEDS: LITHIUM CARBONATE 300 MG CAPSULE PO SCH ×2 (09:14→16:49)
[2020-09-29] MEDS: NICOTINE 21 MG/24 HOUR PATCH TD SCH (09:15)
[2020-09-29 16:29] VITALS: BP 100/69
[2020-09-29] MEDS: TraZODone HCL 100 MG TABLET PO SCH (21:17)
[2020-09-29] MEDS: OLANZapine 10 MG TABLET PO SCH (21:18)
[2020-09-30 04:23] VITALS: BP 112/69
[2020-09-30] MEDS: LEVOTHYROXINE SODIUM 75 MCG TABLET PO SCH (06:27)
[2020-09-30 08:38] VITALS: BP 118/70
[2020-09-30] MEDS: LITHIUM CARBONATE 300 MG CAPSULE PO SCH ×2 (09:38→17:26)
[2020-09-30] MEDS: DIVALPROEX SODIUM 500 MG DR TABLET PO SCH ×2 (09:38→17:21)
[2020-09-30] MEDS: NICOTINE 21 MG/24 HOUR PATCH TD SCH (09:38)
[2020-09-30] MEDS: TraZODone HCL 50 MG TABLET PO SCH ×2 (09:44→17:23)
[2020-09-30 17:47] VITALS: BP 108/66
[2020-09-30] MEDS: TraZODone HCL 100 MG TABLET PO SCH (20:49)
[2020-09-30] MEDS: ZOLPIDEM TARTRATE 10 MG TABLET PO PRN (20:49)
[2020-09-30] MEDS: OLANZapine 10 MG TABLET PO SCH (20:49)
[2020-10-01 04:25] VITALS: BP 112/71
[2020-10-01] MEDS: LEVOTHYROXINE SODIUM 75 MCG TABLET PO SCH (07:02)
[2020-10-01 08:49] VITALS: BP 107/67
[2020-10-01] MEDS: NICOTINE 21 MG/24 HOUR PATCH TD SCH (09:55)
[2020-10-01] MEDS: TraZODone HCL 50 MG TABLET PO SCH ×2 (09:56→16:45)
[2020-10-01] MEDS: DIVALPROEX SODIUM 500 MG DR TABLET PO SCH ×2 (09:56→16:45)
[2020-10-01] MEDS: LITHIUM CARBONATE 300 MG CAPSULE PO SCH ×2 (09:56→16:45)
[2020-10-01 16:26] VITALS: BP 105/64
[2020-10-01] MEDS: TraZODone HCL 100 MG TABLET PO SCH (20:05)
[2020-10-01] MEDS: OLANZapine 10 MG TABLET PO SCH (20:05)
[2020-10-01] MEDS: LORazepam 2 MG TABLET PO PRN (20:57)
[2020-10-02 04:19] VITALS: BP 110/69
[2020-10-02] MEDS: LEVOTHYROXINE SODIUM 75 MCG TABLET PO SCH (06:45)
[2020-10-02] MEDS: NICOTINE 21 MG/24 HOUR PATCH TD SCH (09:00)
[2020-10-02] MEDS: LITHIUM CARBONATE 300 MG CAPSULE PO SCH ×2 (09:16→16:36)
[2020-10-02] MEDS: TraZODone HCL 50 MG TABLET PO SCH ×2 (09:16→16:39)
[2020-10-02] MEDS: DIVALPROEX SODIUM 500 MG DR TABLET PO SCH ×2 (09:16→16:36)
[2020-10-02 17:25] VITALS: BP 107/60
[2020-10-02] MEDS: OLANZapine 10 MG TABLET PO SCH (20:45)
[2020-10-02] MEDS: TraZODone HCL 100 MG TABLET PO SCH (20:45)
[2020-10-02] MEDS: ZOLPIDEM TARTRATE 10 MG TABLET PO PRN (20:46)
[2020-10-03 05:22] VITALS: BP 114/74
[2020-10-03] MEDS: LEVOTHYROXINE SODIUM 75 MCG TABLET PO SCH (06:25)
[2020-10-03 08:56] VITALS: BP 113/73
[2020-10-03] MEDS: NICOTINE 21 MG/24 HOUR PATCH TD SCH (09:00)
[2020-10-03] MEDS: TraZODone HCL 50 MG TABLET PO SCH ×2 (09:06→16:28)
[2020-10-03] MEDS: LITHIUM CARBONATE 300 MG CAPSULE PO SCH ×2 (09:06→16:28)
[2020-10-03] MEDS: DIVALPROEX SODIUM 500 MG DR TABLET PO SCH ×2 (09:06→16:28)
[2020-10-03 17:11] VITALS: BP 113/69
[2020-10-03] MEDS: OLANZapine 10 MG TABLET PO SCH (20:40)
[2020-10-03] MEDS: TraZODone HCL 100 MG TABLET PO SCH (20:41)
[2020-10-04 00:46] VITALS: BP 119/79
[2020-10-04] MEDS: LEVOTHYROXINE SODIUM 75 MCG TABLET PO SCH (06:24)
[2020-10-04 08:20] VITALS: BP 100/65
[2020-10-04] MEDS: NICOTINE 21 MG/24 HOUR PATCH TD SCH (09:00)
[2020-10-04] MEDS: TraZODone HCL 50 MG TABLET PO SCH ×2 (09:25→16:45)
[2020-10-04] MEDS: DIVALPROEX SODIUM 500 MG DR TABLET PO SCH ×2 (09:25→16:45)
[2020-10-04] MEDS: LITHIUM CARBONATE 300 MG CAPSULE PO SCH ×2 (09:25→16:45)
[2020-10-04 17:05] VITALS: BP 115/70
[2020-10-04] MEDS: TraZODone HCL 100 MG TABLET PO SCH (20:01)
[2020-10-04] MEDS: OLANZapine 10 MG TABLET PO SCH (20:01)
[2020-10-04] MEDS: LORazepam 2 MG TABLET PO PRN (20:01)
[2020-10-05 05:10] VITALS: BP 111/71
[2020-10-05] MEDS: LEVOTHYROXINE SODIUM 75 MCG TABLET PO SCH (06:35)
[2020-10-05 08:13] VITALS: BP 101/61
[2020-10-05] MEDS: TraZODone HCL 50 MG TABLET PO SCH ×2 (08:41→16:33)
[2020-10-05] MEDS: DIVALPROEX SODIUM 500 MG DR TABLET PO SCH ×2 (08:41→16:33)
[2020-10-05] MEDS: LITHIUM CARBONATE 300 MG CAPSULE PO SCH ×2 (08:41→16:33)
[2020-10-05] MEDS: HALOPERIDOL 5 MG TABLET PO PRN (08:42)
[2020-10-05 17:13] VITALS: BP 109/68
[2020-10-05] MEDS: OLANZapine 10 MG TABLET PO SCH (20:55)
[2020-10-05] MEDS: TraZODone HCL 100 MG TABLET PO SCH (20:55)
[2020-10-06 01:09] VITALS: BP 110/66
[2020-10-06] MEDS: LEVOTHYROXINE SODIUM 75 MCG TABLET PO SCH (06:11)
[2020-10-06] MEDS: DIVALPROEX SODIUM 500 MG DR TABLET PO SCH ×2 (08:42→17:22)
[2020-10-06] MEDS: TraZODone HCL 50 MG TABLET PO SCH ×2 (08:42→17:22)
[2020-10-06] MEDS: LITHIUM CARBONATE 300 MG CAPSULE PO SCH ×2 (08:42→17:22)
[2020-10-06 08:43] VITALS: BP 110/74
[2020-10-06] MEDS: NICOTINE 21 MG/24 HOUR PATCH TD SCH (08:51)
[2020-10-06 16:11] VITALS: BP_SYST 112; BP_SYST 136; BP_DIAS 62; BP_DIAS 86
[2020-10-06] MEDS: OLANZapine 10 MG TABLET PO SCH (20:07)
[2020-10-06] MEDS: TraZODone HCL 100 MG TABLET PO SCH (20:07)
[2020-10-07 00:23] VITALS: BP 110/61
[2020-10-07] MEDS: LEVOTHYROXINE SODIUM 75 MCG TABLET PO SCH (06:30)
[2020-10-07 08:59] VITALS: BP 127/81
[2020-10-07] MEDS: NICOTINE 21 MG/24 HOUR PATCH TD SCH (09:33)
[2020-10-07] MEDS: DIVALPROEX SODIUM 500 MG DR TABLET PO SCH (09:33)
[2020-10-07] MEDS: TraZODone HCL 50 MG TABLET PO SCH (09:33)
[2020-10-07] MEDS: LITHIUM CARBONATE 300 MG CAPSULE PO SCH (09:33)
[2020-10-07] MEDS ORDERED: TRAZ-252 PO (13:22)
[2020-10-07] MEDS ORDERED: TRAZ-257 PO (13:22)
[2020-10-07] MEDS ORDERED: LEVO125T95 PO (13:26)
== END 2020-10-07 15:10 | disposition home or self-care (01) | DRG 750 ==
LOC: B3A 20:37
PROVIDERS: ADMIT Psychiatry & Neurology Child & Adolescent Psychiatry; ATTEND Psychiatry & Neurology Child & Adolescent Psychiatry
DX: F20.9 Schizophrenia, unspecified (principal); F17.200 Nicotine dependence, unspecified, uncomplicated; E03.9 Hypothyroidism, unspecified; F41.9 Anxiety disorder, unspecified; G47.00 Insomnia, unspecified; F12.90 Cannabis use, unspecified, uncomplicated; Z20.822 Contact with and (suspected) exposure to COVID-19; Z59.0 Homelessness; Z91.19 Patient's noncompliance with other medical treatment and regimen
CPT/HCPCS: 83036; 84439; 84443; 87426; A9575

== ENCOUNTER 2021-10-02 15:05 | Outpatient (CLI) | payer OTHER ==
[~2021-10-02] VITALS: Ht 172.7 cm; Wt 75.3 kg
[~2021-10-02 15:05] MED LIST changes: +LEVO125T95 PO; -OLAN10TA3 PO; +OLAN10TA74 PO; +TRAZ-252 PO; +TRAZ-257 PO
[2021-10-02] MEDS ORDERED: LEVO75 PO (19:01)
[2021-10-02 20:00] VITALS: BP 121/75
[2021-10-02] MEDS: DIVALPROEX SODIUM 500 MG ER TABLET PO SCH (20:27)
[2021-10-02] MEDS ORDERED: OLANZapine 10 MG TABLET PO SCH (21:00)
[2021-10-02] MEDS ORDERED: TraZODone HCL 50 MG TABLET PO SCH (21:00)
[2021-10-02 22:48] VITALS: BP 121/75
[2021-10-03 01:51] LABS: GLUCOMETER DEV NAME(LOC) POC.BV
[2021-10-03 08:00] VITALS: BP 110/72
[2021-10-03] MEDS: DIVALPROEX SODIUM 500 MG ER TABLET PO SCH (08:08)
== END 2021-10-03 09:30 | disposition home or self-care (01) ==
LOC: CSU 15:05
PROVIDERS: ATTEND Psychiatry & Neurology Psychiatry
DX: F25.9 Schizoaffective disorder, unspecified (principal); F15.259 Other stimulant dependence with stimulant-induced psychotic disorder, unspecified; Z59.00 Homelessness unspecified
CPT/HCPCS: 90792; Z7610

== ENCOUNTER 2021-10-13 10:08 | Emergency (ER) | payer OTHER ==
[~2021-10-13] VITALS: Ht 170.2 cm; Wt 65.9 kg
[~2021-10-13 10:08] MED LIST changes: -LEVO125T95 PO; +LEVO75 PO
[2021-10-13 12:48] LABS: AMPHET/METH SCREEN,URINE POSITIVE (NEGATIVE); BARBITURATE SCREEN, URINE NEGATIVE (NEGATIVE); BENZODIAZEPINES SCREEN,URINE NEGATIVE (NEGATIVE); CANNABINOID SCREEN,URINE NEGATIVE (NEGATIVE); COCAINE SCREEN,URINE NEGATIVE (NEGATIVE); METHADONE SCREEN, URINE NEGATIVE (NEGATIVE); OPIATE SCREEN,URINE NEGATIVE (NEGATIVE)
[2021-10-13 12:50] LABS: PHENCYCLIDINE SCREEN,URINE NEGATIVE (NEGATIVE)
[2021-10-13 15:43] VITALS: BP 133/83
== END 2021-10-13 15:51 | disposition home or self-care (01) ==
LOC: EMS 10:25
DX: R45.851 Suicidal ideations (principal); F31.9 Bipolar disorder, unspecified; F20.9 Schizophrenia, unspecified; F17.210 Nicotine dependence, cigarettes, uncomplicated; F19.90 Other psychoactive substance use, unspecified, uncomplicated; Z88.8 Allergy status to other drugs, medicaments and biological substances
CPT/HCPCS: 99285